=== PATIENT | male | born 1960 | race African-American/Black ===

== ENCOUNTER 2016-12-25 14:28 | Inpatient (IN) | payer OTHER ==
[2016-12-25 16:24] VITALS: BMI 29.2
--- NOTE | 2016-12-25 17:03 | HP ---
COWS - Scale Resting Pulse: 1= [place] 81-100 Sweatin= Chills/Flushing Restless Observation: 1= Difficult to Sit Still Pupil Size: 1= Pupils >than Normal Bone or Joint Aches: 1= Mild Discomfort Runny Nose/ Eye Tearin= Nasal Congestion GI Upset > 30mins: 2= Nausea/Diarrhea Tremor Observation: 2= Slight Tremor Visible Yawning Observation: 1= 1-2x During Session Anxiety or Irritability: 1=Feels Anxious/Irritable Goose Flesh Skin: 3=Piloerection COWS Score: 15 Admission ROS S - HPI Chief Complaint: heroin withdrawal sx, requesting in patient detoxification Allergies/Adverse Reactions: Allergies Allergy/AdvReac Type Severity Reaction Status Date / Time shellfish derived Allergy Severe Difficulty Verified 12/25/16 16:56 Breathing NKDA Allergy Uncoded 08/14/16 15:51 History of Present Illness: 55 yo m w long h/o substance use, previously alcohol and cocaine dependence as well, but for the past year has been using mainly heroin instead, [facility] inpatient detox at [facility], last detox last year here, PMHX asthma, HTN, taking medications, now with heorin withdrawal, uses daily, last used 3AM today. no h/o seizures, has had alcohol blackouts when he was drinking heavily in past, no h/o DTs, no psychiatric illness, no suicidal ideaton in past or at present, no suicide attempts. reports sweats, chills, body aches and trupti pain, poor appetite, insomnia, anxiety , depression, nasal congestion and nause, wt steady., no MMTP uses street methadone. Exam Limitations: No Limitations - Ebola screening Have you traveled outside of the country in the last 21 days: No Have you had contact with anyone from an Ebola affected area: No Have you been sick,other than usual withdrawal symptoms: No Do you have a fever: No - Review of Systems Constitutional: Chills, Diaphoresis, Weakness, Weight Stable EENT: reports: Nose Congestion Respiratory: reports: SOB with Exertion, Wheezing (asthma) Cardiac: reports: No Symptoms Reported GI: reports: No Symptoms Reported : reports: No Symptoms Reported Musculoskeletal: reports: Back Pain, Joint Pain, Muscle Pain, Joint Stiffness Integumentary: reports: Flushing, Sweating Neuro: reports: Headache, Tremors, Weakness Endocrine: reports: No Symptoms Reported Hematology: reports: No Symptoms Reported Psychiatric: reports: Judgement Intact, Mood/Affect Appropiate, Orientated x3, Anxious, Depressed Other Systems: Reviewed and Negative Patient History - Patient Medical History Hx Anemia: No Hx Asthma: Yes Hx Chronic Obstructive Pulmonary Disease (COPD): No Hx Cancer: No Hx Cardiac Disorders: No Hx Congestive Heart Failure: No Hx Hypertension: Yes (ON MEDS) Hx Hypercholesterolemia: No Hx Pacemaker: No HX Cerebrovascular Accident: No Hx Seizures: No Hx Dementia: No Hx Diabetes: No Hx Gastrointestinal Disorders: No Hx Liver Disease: No Hx Genitourinary Disorders: No Hx Sexually Transmitted Disorders: No Hx Renal Disease (ESRD): No Hx Thyroid Disease: No Hx Human Immunodeficiency Virus (HIV): No (NEGATIVE HX LAST 2014) Hx Hepatitis C: No Hx Depression: Yes ("sometimes" no med) Hx Suicide Attempt: No Hx Bipolar Disorder: No Hx Schizophrenia: No - Patient Surgical History Past Surgical History: Yes Hx Neurologic Surgery: No Hx Cataract Extraction: No Hx Cardiac Surgery: No Hx Lung Surgery: No Hx Breast Surgery: No Hx Breast Biopsy: No Hx Abdominal Surgery: No Hx Appendectomy: No Hx Cholecystectomy: No Hx Genitourinary Surgery: No Hx Section: No Hx Orthopedic Surgery: Yes (spinal fusion in 2005 & 2006 for herniated disc) Hx Hysterectomy: No Anesthesia Reaction: No - PPD History Previous Implant?: Yes Documented Results: Negative w/proof Implanted On Prior R Admission?: Yes Date: 06/20/16 Results: 0 MM PPD to be Administered?: No - Reproductive History Patient is a Female of Child Bearing Age (11 -55 yrs old): No Patient : No - Smoking Cessation Smoking history: Never smoked Have you smoked in the past 12 months: No Aproximately how many cigarettes per day: 0 Cigars Per Day: 0 Hx Chewing Tobacco Use: No Initiated information on smoking cessation: No 'Breaking Loose' booklet given: 12/25/16 - Substance & Tx. History Hx Alcohol Use: Yes Hx Substance Use: Yes Substance Use Type: Alcohol, Heroin Hx Substance Use Treatment: Yes ([facility]) - Substances Abused Heroin Route: Inhalation Frequency: Daily Amount used: 8-10 bags Age of first use: 54 Date of Last Use: 12/25/16 Alcohol Route: Oral Frequency: 3-6 times per week Amount used: decreased use now that he has been using heroin, some tremors when he does Cocaine Route: Inhalation Amount used: h/o smoking and sniffing cocaine in past none recently Family Disease History - Family Disease History Family Disease History: Heart Disease: Mother (HTN cirrohosis of liver) , Other: Father ( cirrohosis of liver), Mother Admission Physical Exam [facility] - Vital Signs Vital Signs: Vital Signs - 24 hr 12/25/16 16:22 Temperature 96.8 F L Pulse Rate 66 Respiratory 20 Rate Blood Pressure 165/94 - Physical General Appearance: Yes: Nourished, Appropriately Dressed, Disheveled, Mild Distress, Tremorous, Irritable, Sweating, Anxious HEENTM: Yes: EOMI, Hearing grossly Normal, Normal ENT Inspection, Normocephalic , Normal Voice, SADIE, Nasal Congestion Respiratory: Yes: Within Normal Limits, Chest Non-Tender, Lungs Clear, Normal Breath Sounds, No Respiratory Distress, No Accessory Muscle Use Neck: Yes: Within Normal Limits, No masses,lesions,Nodules, Supple, Trachea in good position Breast: Yes: Breast Exam Deferred Cardiology: Yes: Within Normal Limits, Regular Rhythm, Regular Rate, S1, S2 Abdominal: Yes: Normal Bowel Sounds, Non Tender, Flat, Soft, Protuberent Genitourinary: Yes: Within Normal Limits Back: Yes: Decreased Range of Motion, Muscle Spasm Musculoskeletal: Yes: Within Normal Limits, full range of Motion, Gait Steady Extremities: Yes: Normal Capillary Refill, Normal Inspection, Normal Range of Motion, Non-Tender, Tremors Neurological: Yes: grain farmer II-XII NML intact, Fully Oriented, Alert, Motor Strength 5/5, Normal Response, Depressed Affect Integumentary: Yes: Normal Color, Warm, Diaphoresis Lymphatic: Yes: Within Normal Limits - Addiitonal Findings: withdrawal sx noted - Diagnostic (1) Alcohol dependence with uncomplicated withdrawal Current Visit: Yes Status: Chronic (2) Opioid dependence Current Visit: No Status: Acute Qualifiers: Substance use status: uncomplicated Qualified Code(s): F11.20 - Opioid dependence, uncomplicated (3) Opioid dependence with withdrawal Current Visit: Yes Status: Acute (4) Substance-induced sleep disorder Current Visit: Yes Status: Acute (5) Asthma Current Visit: Yes Status: Chronic (6) Chronic back pain Current Visit: No Status: Chronic (7) Cocaine dependence Current Visit: Yes Status: Chronic (8) Constipation by delayed colonic transit Current Visit: Yes Status: Chronic (9) Essential hypertension Current Visit: Yes Status: Chronic (10) Low back pain Current Visit: Yes Status: Chronic (11) Drug-induced mood disorder Current Visit: Yes Status: Acute BHS Breath Alcohol Content Breath Alcohol Content: 0 Urine Drug Screen - Results Drug Screen Negative: No Urine Drug Screen Results: OPI-Opiates, MTD-Methadone
[2016-12-25] MEDS ORDERED: MAG HYDROX/AL HYDROX/SIMETH 30 ML UNIT-DOSE CUP PO PRN (17:08)
[2016-12-25] MEDS ORDERED: LOPERAMIDE HCL 2 MG CAPSULE PO PRN (17:08)
[2016-12-25] MEDS ORDERED: MAGNESIUM CITRATE 300 ML BOTTLE PO PRN (17:08)
[2016-12-25] MEDS ORDERED: hydrOXYzine PAMOATE 50 MG CAPSULE (FP) PO PRN (17:08)
[2016-12-25] MEDS ORDERED: MENTHOL/PHENOL 1 EACH UD MM PRN (17:08)
[2016-12-25] MEDS ORDERED: MAGNESIUM HYDROX 2400MG/30ML ORAL SUSPENSION 30 ML CUP PO PRN (17:08)
[2016-12-25] MEDS ORDERED: guaiFENesin/D-METHORPHAN HB 10 ML UNIT-DOSE CUPS PO PRN (17:08)
[2016-12-25] MEDS ORDERED: P-EPHED 60MG/TRIPROLIDI 2.5MG TABLET PO PRN (17:08)
[2016-12-25] MEDS ORDERED: IBUPROFEN 400 MG TABLET (FP) PO PRN (17:08)
[2016-12-25] MEDS ORDERED: ALBUTEROL SO4 6.7 GM HFA INHALER IH PRN (17:09)
[2016-12-25] MEDS ORDERED: METHADONE HCL 10 MG TABLET (FOR DETOX USE ONLY) PO ONE ×2 (18:30→23:00)
[2016-12-25] MEDS ORDERED: amLODIPine BESYLATE 10 MG TABLET (FP) PO ONE (18:30)
--- NOTE | 2016-12-25 19:55 | PN ---
[facility] Progress Note Note: received pharmacist call motrin can not coexist with naproxen discontinue motrin continue detox
[2016-12-25 20:31] LABS: URINE APPEARANCE CLEAR; URINE BILIRUBIN NEGATIVE (NEGATIVE); URINE BLOOD NEGATIVE (NEGATIVE); URINE COLOR YELLOW; URINE GLUCOSE (UA) NEGATIVE (NEGATIVE); URINE KETONE NEGATIVE (NEGATIVE); URINE LEUK ESTERASE NEGATIVE (NEGATIVE); URINE NITRITE NEGATIVE (NEGATIVE); URINE PROTEIN NEGATIVE (NEGATIVE); URINE UROBILINOGEN NEGATIVE E.U./dl (0.2-1.0)
--- NOTE | 2016-12-25 21:32 | PN ---
[facility] Progress Note Note: received nurse call regarding naproxen order reassurance motrin no longer exist
[2016-12-25] MEDS ORDERED: NAPROXEN 500 MG TABLET (FP) PO SCH (22:00)
[2016-12-25] MEDS: THIAMINE HCL 100 MG TABLET (FP) PO SCH (22:19)
[2016-12-25] MEDS: NAPROXEN 500 MG TABLET (FP) PO SCH (22:20)
[2016-12-25] MEDS: BUDESONIDE/FORMETEROL FUMARATE 80/4.5 mcg INHALER IH SCH (22:20)
[2016-12-25] MEDS: CYCLOBENZAPRINE HCL 10 MG TABLET (FP) PO SCH (22:20)
[2016-12-25] MEDS: diazePAM 5 MG TABLET PO PRN (22:20)
[2016-12-25] MEDS: cloNIDine HCL 0.1 MG TABLET PO SCH (22:20)
[2016-12-25] MEDS: diphenhydrAMINE HCL 50 MG CAPSULE PO PRN (22:22)
[2016-12-26] MEDS: diazePAM 5 MG TABLET PO PRN (05:42)
[2016-12-26] MEDS: CYCLOBENZAPRINE HCL 10 MG TABLET (FP) PO SCH ×3 (05:42→22:16)
[2016-12-26] MEDS: ACETAMINOPHEN 325 MG TABLET (FP) PO PRN (05:42)
--- NOTE | 2016-12-26 09:53 | PN ---
S COWS - Scale Resting Pulse: 0= [place] 80 or Below Sweatin= Chills/Flushing Restless Observation: 3= Extraneous Movement Pupil Size: 2= Moderately Dilated Bone or Joint Aches: 4=Acute Joint/Muscle Pain Runny Nose/ Eye Tearin= Nasal Congestion GI Upset > 30mins: 1= Stomach Cramp Tremor Observation of Outstretched Hands: 2= Slight Tremor Visible Yawning Observation: 2= >3x During Session Anxiety or Irritability: 2=Irritable/Anxious Goose Flesh Skin: 0=Smooth Skin COWS Score: 18 BHS Progress Note (SOAP) Subjective: ANXIETYSWEATS,TREMORS,FATIGUE,BODYACHES. Objective: 12/26/16 09:52 Vital Signs Temperature 95.9 F L 12/26/16 09:36 Pulse Rate 70 12/26/16 09:36 Respiratory Rate 16 12/26/16 09:36 Blood Pressure 113/74 12/26/16 09:36 O2 Sat by Pulse Oximetry (%) Laboratory Last Values Urine Color Yellow 12/25/16 19:45 Urine Appearance Clear 12/25/16 19:45 Urine pH 5.0 (5.0-8.0) 12/25/16 19:45 Ur Specific [place] 1.027 (1.001-1.035) 12/25/16 19:45 Urine Protein Negative (NEGATIVE) 12/25/16 19:45 Urine Glucose (UA) Negative (NEGATIVE) 12/25/16 19:45 Urine Ketones Negative (NEGATIVE) 12/25/16 19:45 Urine Blood Negative (NEGATIVE) 12/25/16 19:45 Urine Nitrite Negative (NEGATIVE) 12/25/16 19:45 Urine Bilirubin Negative (NEGATIVE) 12/25/16 19:45 Urine Urobilinogen Negative E.U./dl (0.2-1.0) 12/25/16 19:45 Ur Leukocyte Esterase Negative (NEGATIVE) 12/25/16 19:45 Assessment: 12/26/16 09:52 WITHDRAWAL SX Plan: CONTINUE DETOX
[2016-12-26] MEDS ORDERED: METHADONE HCL 10 MG TABLET (FOR DETOX USE ONLY) PO ONE (10:00)
[2016-12-26] MEDS: BUDESONIDE/FORMETEROL FUMARATE 80/4.5 mcg INHALER IH SCH ×2 (10:10→22:16)
[2016-12-26 10:11] LABS: MCH 29.9 pg (25.7-33.7); MCHC 33.6 g/dl (32.0-35.9); MEAN PLT VOLUME 8.7 fl (7.5-11.1); PLATELET COUNT 178 K/MM3 (134-434); RDW 13.5 % (11.9-15.9); WHITE BLOOD COUNT 7.2 K/mm3 (4.0-10.0)
[2016-12-26] MEDS: PRENATAL VITAMINS W/ FOLIC ACID TABLET (FP) PO SCH (10:11)
[2016-12-26] MEDS: cloNIDine HCL 0.1 MG TABLET PO SCH ×2 (10:11→22:16)
[2016-12-26] MEDS: amLODIPine BESYLATE 10 MG TABLET (FP) PO SCH (10:11)
[2016-12-26] MEDS: NAPROXEN 500 MG TABLET (FP) PO SCH ×2 (10:11→22:16)
[2016-12-26 10:37] LABS: ALBUMIN 4.1 g/dl (3.4-5.0); ALK PHOS 67 U/L (45-117); ANION GAP 10 (8-16); BILIRUBIN,TOTAL 0.6 mg/dL (0.2-1.0); CALCIUM 9.4 mg/dL (8.5-10.1); CO2 27 mmol/L (21-32); GLUCOSE,RANDOM 78 mg/dL (74-106); SGOT/AST 22 U/L (15-37); SGPT/ALT 41 U/L (12-78); TOT PROT 7.7 g/dl (6.4-8.2)
--- NOTE | 2016-12-26 11:44 | CONSULT ---
[facility] Psychiatric Consult - Data Date of interview: 12/26/16 Admission source: [facility] Identifying data: This is one of multiple admissions to [facility] for this 55 y/ o AA male seeking detox treatment on for heroin,cocaine and alcohol dependence.Patient is single without children,domiciled,unemployed and supported on [facility] benefits. Substance Abuse History: - Smoking Cessation. Smoking history: Never smoked. Have you smoked in the past 12 months: No. Aproximately how many cigarettes per day: 0. Cigars Per Day: 0. Hx Chewing Tobacco Use: No. Initiated information on smoking cessation: No. 'Breaking Loose' booklet given: . - Substance & Tx. History. Hx Alcohol Use: Yes. Hx Substance Use: Yes. Substance Use Type: Alcohol, Heroin. Hx Substance Use Treatment: Yes ([facility]). - Substances Abused. Heroin. Route: Inhalation. Frequency : Daily. Amount used: 8-10 bags. Age of first use: 54. Date of Last Use: . Alcohol. Route: Oral. Frequency: 3-6 times per week. Amount used: decreased use now that he has been using heroin, some tremors when he does. Cocaine. Route: Inhalation. Amount used: h/o smoking and sniffing cocaine in past none recently. This pattern of substance use is confirmed by the patient in this interview. Medical History: Remarkable for a history of bronchial asthma,HTN,lower back pain and a history of spinal fusion (2005 and 2006) for herniated disks. Psychiatric History: Patient denies. Physical/Sexual Abuse/Trauma History: Patient denies. Additional Comment: Urine Drug Screen Results: OPI-Opiates, MTD-Methadone.Noted. Mental Status Exam - Mental Status Exam Alert and Oriented to: Time, Place, Person Cognitive Function: Good Patient Appearance: Well Groomed Mood: Hopeful, Euthymic Affect: Appropriate, Normal Range Patient Behavior: Fatigued, Appropriate, Cooperative Speech Pattern: Clear, Appropriate Voice Loudness: Normal Thought Process: Goal Oriented Thought Disorder: Not Present Hallucinations: Denies Suicidal Ideation: Denies Homicidal Ideation: Denies Insight/Judgement: Fair Sleep: Well Appetite: Good Muscle strength/Tone: Normal Gait/Station: Normal Psychiatric Findings - Problem List ([place] 1, 2,3) (1) Opioid dependence with withdrawal Current Visit: Yes Status: Acute (2) Alcohol dependence with uncomplicated withdrawal Current Visit: Yes Status: Acute (3) Asthma Current Visit: Yes Status: Chronic (4) Essential hypertension Current Visit: Yes Status: Chronic (5) Low back pain Current Visit: Yes Status: Chronic (6) Chronic back pain Current Visit: Yes Status: Chronic - Initial Treatment Plan Initial Treatment Plan: Psychoeducation.Detoxification.Observation.
--- NOTE | 2016-12-26 13:20 | EKG ---
Test Reason : Blood Pressure : / mmHG Vent. Rate : 059 BPM Atrial Rate : 059 BPM P-R Int : 148 ms QRS Dur : 100 ms QT Int : 406 ms P-R-T Axes : 061 025 020 degrees QTc Int : 401 ms SINUS BRADYCARDIA INCOMPLETE RIGHT BUNDLE BRANCH BLOCK BORDERLINE ECG NO PREVIOUS ECGS AVAILABLE Confirmed by DENAE VILLARREAL MD ([id number]) on 12/26/2016 1:20:02 PM Referred By: Confirmed By:DENAE VILLARREAL MD
[2016-12-26] MEDS: THIAMINE HCL 100 MG TABLET (FP) PO SCH (22:16)
[2016-12-26] MEDS: diphenhydrAMINE HCL 50 MG CAPSULE PO PRN (22:17)
[2016-12-27] MEDS: ACETAMINOPHEN 325 MG TABLET (FP) PO PRN (05:38)
[2016-12-27] MEDS: diazePAM 5 MG TABLET PO PRN ×2 (05:39→22:05)
[2016-12-27] MEDS: CYCLOBENZAPRINE HCL 10 MG TABLET (FP) PO SCH ×3 (05:39→22:05)
--- NOTE | 2016-12-27 09:26 | PN ---
S COWS - Scale Resting Pulse: 0= MD 80 or Below Sweatin= Chills/Flushing Restless Observation: 3= Extraneous Movement Pupil Size: 2= Moderately Dilated Bone or Joint Aches: 4=Acute Joint/Muscle Pain Runny Nose/ Eye Tearin= Nasal Congestion GI Upset > 30mins: 1= Stomach Cramp Tremor Observation of Outstretched Hands: 1= Tremor [place], Not Seen Yawning Observation: 2= >3x During Session Anxiety or Irritability: 1=Feels Anxious/Irritable Goose Flesh Skin: 0=Smooth Skin COWS Score: 16 S Progress Note (SOAP) Subjective: ANXIETY,SWEATS/CHILLS. Objective: 12/27/16 09:25 Vital Signs Temperature 97.8 F 12/27/16 09:21 Pulse Rate 73 12/27/16 09:21 Respiratory Rate 18 12/27/16 09:21 Blood Pressure 122/71 12/27/16 09:21 O2 Sat by Pulse Oximetry (%) Laboratory Last Values WBC 7.2 K/mm3 (4.0-10.0) D 12/26/16 06:00 RBC 4.37 M/mm3 (4.00-5.60) 12/26/16 06:00 Hgb 13.1 GM/dL (11.7-16.9) 12/26/16 06:00 Hct 38.9 % (35.4-49) 12/26/16 06:00 MCV 89.0 fl (80-96) 12/26/16 06:00 MCHC 33.6 g/dl (32.0-35.9) 12/26/16 06:00 RDW 13.5 % (11.9-15.9) 12/26/16 06:00 Plt Count 178 K/MM3 (134-434) D 12/26/16 06:00 MPV 8.7 fl (7.5-11.1) 12/26/16 06:00 Sodium 140 mmol/L (136-145) 12/26/16 06:00 Potassium 3.8 mmol/L (3.5-5.1) 12/26/16 06:00 Chloride 103 mmol/L (98-107) 12/26/16 06:00 Carbon Dioxide 27 mmol/L (21-32) 12/26/16 06:00 Anion Gap 10 (8-16) 12/26/16 06:00 BUN 17 mg/dL (7-18) D 12/26/16 06:00 Creatinine 1.0 mg/dL (0.7-1.3) 12/26/16 06:00 Creat Clearance w eGFR > 60 (>60) 12/26/16 06:00 Random Glucose 78 mg/dL (74-106) D 12/26/16 06:00 Calcium 9.4 mg/dL (8.5-10.1) 12/26/16 06:00 Total Bilirubin 0.6 mg/dL (0.2-1.0) D 12/26/16 06:00 AST 22 U/L (15-37) D 12/26/16 06:00 ALT 41 U/L (12-78) D 12/26/16 06:00 Alkaline Phosphatase 67 U/L (45-117) 12/26/16 06:00 Total Protein 7.7 g/dl (6.4-8.2) 12/26/16 06:00 Albumin 4.1 g/dl (3.4-5.0) 12/26/16 06:00 Urine Color Yellow 12/25/16 19:45 Urine Appearance Clear 12/25/16 19:45 Urine pH 5.0 (5.0-8.0) 12/25/16 19:45 Ur Specific [place] 1.027 (1.001-1.035) 12/25/16 19:45 Urine Protein Negative (NEGATIVE) 12/25/16 19:45 Urine Glucose (UA) Negative (NEGATIVE) 12/25/16 19:45 Urine Ketones Negative (NEGATIVE) 12/25/16 19:45 Urine Blood Negative (NEGATIVE) 12/25/16 19:45 Urine Nitrite Negative (NEGATIVE) 12/25/16 19:45 Urine Bilirubin Negative (NEGATIVE) 12/25/16 19:45 Urine Urobilinogen Negative E.U./dl (0.2-1.0) 12/25/16 19:45 Ur Leukocyte Esterase Negative (NEGATIVE) 12/25/16 19:45 RPR Titer Nonreactive (NONREACTIVE) 12/26/16 06:00 Assessment: 12/27/16 09:25 WITHDRAWAL SX Plan: CONTINUE DETOX
[2016-12-27] MEDS ORDERED: METHADONE HCL 5 MG TABLET (FOR DETOX USE ONLY) PO ONE (10:00)
[2016-12-27] MEDS: BUDESONIDE/FORMETEROL FUMARATE 80/4.5 mcg INHALER IH SCH ×2 (10:01→22:05)
[2016-12-27] MEDS: cloNIDine HCL 0.1 MG TABLET PO SCH ×2 (10:01→22:05)
[2016-12-27] MEDS: NAPROXEN 500 MG TABLET (FP) PO SCH ×2 (10:02→22:05)
[2016-12-27] MEDS: PRENATAL VITAMINS W/ FOLIC ACID TABLET (FP) PO SCH (10:02)
[2016-12-27] MEDS: amLODIPine BESYLATE 10 MG TABLET (FP) PO SCH (10:02)
[2016-12-27] MEDS: THIAMINE HCL 100 MG TABLET (FP) PO SCH (22:05)
[2016-12-28] MEDS: CYCLOBENZAPRINE HCL 10 MG TABLET (FP) PO SCH ×3 (05:44→22:12)
--- NOTE | 2016-12-28 08:38 | PN ---
[facility] Progress Note (SOAP) Subjective: sweating,interrupted sleep,restless Objective: 12/28/16 08:37 Vital Signs - 8 hr 12/28/16 12/28/16 03:37 06:19 Temperature 97.3 F L Pulse Rate 65 Respiratory 18 16 Rate Blood Pressure 113/76 Laboratory Tests 12/25/16 12/26/16 12/26/16 19:45 06:00 06:00 WBC 7.2 D RBC 4.37 Hgb 13.1 Hct 38.9 MCV 89.0 MCHC 33.6 RDW 13.5 Plt Count 178 D MPV 8.7 Sodium 140 Potassium 3.8 Chloride 103 Carbon Dioxide 27 Anion Gap 10 BUN 17 D Creatinine 1.0 Creat Clearance w eGFR > 60 Random Glucose 78 D Calcium 9.4 Total Bilirubin 0.6 D AST 22 D ALT 41 D Alkaline Phosphatase 67 Total Protein 7.7 Albumin 4.1 Urine Color Yellow Urine Appearance Clear Urine pH 5.0 Ur Specific [place] 1.027 Urine Protein Negative Urine Glucose (UA) Negative Urine Ketones Negative Urine Blood Negative Urine Nitrite Negative Urine Bilirubin Negative Urine Urobilinogen Negative Ur Leukocyte Esterase Negative RPR Titer 12/26/16 06:00 WBC RBC Hgb Hct MCV MCHC RDW Plt Count MPV Sodium Potassium Chloride Carbon Dioxide Anion Gap BUN Creatinine Creat Clearance w eGFR Random Glucose Calcium Total Bilirubin AST ALT Alkaline Phosphatase Total Protein Albumin Urine Color Urine Appearance Urine pH Ur Specific [place] Urine Protein Urine Glucose (UA) Urine Ketones Urine Blood Urine Nitrite Urine Bilirubin Urine Urobilinogen Ur Leukocyte Esterase RPR Titer Nonreactive labs noted Assessment: 12/28/16 08:37 withdrawal sx. Plan: continue detox
[2016-12-28] MEDS ORDERED: METHADONE HCL 5 MG TABLET (FOR DETOX USE ONLY) PO ONE (10:00)
[2016-12-28] MEDS ORDERED: METHADONE HCL 10 MG TABLET (FOR DETOX USE ONLY) PO ONE (10:00)
[2016-12-28] MEDS: NAPROXEN 500 MG TABLET (FP) PO SCH ×2 (10:06→22:12)
[2016-12-28] MEDS: cloNIDine HCL 0.1 MG TABLET PO SCH ×2 (10:06→22:12)
[2016-12-28] MEDS: amLODIPine BESYLATE 10 MG TABLET (FP) PO SCH (10:07)
[2016-12-28] MEDS: PRENATAL VITAMINS W/ FOLIC ACID TABLET (FP) PO SCH (10:07)
[2016-12-28] MEDS: BUDESONIDE/FORMETEROL FUMARATE 80/4.5 mcg INHALER IH SCH ×2 (10:08→22:11)
[2016-12-28] MEDS: ACETAMINOPHEN 325 MG TABLET (FP) PO PRN (13:37)
[2016-12-28] MEDS: diphenhydrAMINE HCL 50 MG CAPSULE PO PRN (22:12)
[2016-12-29] MEDS: THIAMINE HCL 100 MG TABLET (FP) PO SCH
[2016-12-29] MEDS: CYCLOBENZAPRINE HCL 10 MG TABLET (FP) PO SCH (05:43)
[2016-12-29] MEDS: ACETAMINOPHEN 325 MG TABLET (FP) PO PRN (05:43)
[2016-12-29] MEDS ORDERED: METHADONE HCL 5 MG TABLET (FOR DETOX USE ONLY) PO ONE (06:00)
[2016-12-29 06:41] VITALS: BP 109/69; PULSE 63; TEMP 97.1
--- NOTE | 2016-12-29 07:31 | PN ---
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 ON THE FLOOR. HE STATED HE HAD TO LEAVE AMA BECAUSE HE HAD "THINGS TO DO". PT. ENCOURAGED TO COMPLETE TREATMENT. HE WAS EDUCATED ON THE BENEFITS OF COMPLETING HIS PROTOCOL AND ALTERNATIVE PLANS; PT. VERBALIZED UNDERSTANDING BUT STATED HE WANTED TO LEAVE.
--- NOTE | 2016-12-29 09:31 | PN ---
[facility] Progress Note (SOAP) Subjective: no complaints Objective: 12/29/16 09:30 Vital Signs - 8 hr 12/29/16 12/29/16 03:30 06:40 Temperature 97.1 F L Pulse Rate 63 Respiratory 18 18 Rate Blood Pressure 109/69 Laboratory Tests 12/25/16 12/26/16 12/26/16 19:45 06:00 06:00 WBC 7.2 D RBC 4.37 Hgb 13.1 Hct 38.9 MCV 89.0 MCHC 33.6 RDW 13.5 Plt Count 178 D MPV 8.7 Sodium 140 Potassium 3.8 Chloride 103 Carbon Dioxide 27 Anion Gap 10 BUN 17 D Creatinine 1.0 Creat Clearance w eGFR > 60 Random Glucose 78 D Calcium 9.4 Total Bilirubin 0.6 D AST 22 D ALT 41 D Alkaline Phosphatase 67 Total Protein 7.7 Albumin 4.1 Urine Color Yellow Urine Appearance Clear Urine pH 5.0 Ur Specific [place] 1.027 Urine Protein Negative Urine Glucose (UA) Negative Urine Ketones Negative Urine Blood Negative Urine Nitrite Negative Urine Bilirubin Negative Urine Urobilinogen Negative Ur Leukocyte Esterase Negative RPR Titer 12/26/16 06:00 WBC RBC Hgb Hct MCV MCHC RDW Plt Count MPV Sodium Potassium Chloride Carbon Dioxide Anion Gap BUN Creatinine Creat Clearance w eGFR Random Glucose Calcium Total Bilirubin AST ALT Alkaline Phosphatase Total Protein Albumin Urine Color Urine Appearance Urine pH Ur Specific [place] Urine Protein Urine Glucose (UA) Urine Ketones Urine Blood Urine Nitrite Urine Bilirubin Urine Urobilinogen Ur Leukocyte Esterase RPR Titer Nonreactive 12/29/16 09:31 Assessment: completed etox, medically stable Plan: d/c today, f/u PCP for medical care after discharge
--- NOTE | 2016-12-29 09:34 | DS ---
[facility] Detox Discharge Summary Admission Date: 12/25/16 Discharge Date: 12/29/16 - History Present History: Alcohol Dependence, Opioid Dependence - Physical Exam Results Vital Signs: Vital Signs Temperature 97.1 F L 12/29/16 06:40 Pulse Rate 63 12/29/16 06:40 Respiratory Rate 18 12/29/16 06:40 Blood Pressure 109/69 12/29/16 06:40 O2 Sat by Pulse Oximetry (%) - Treatment Hospital Course: Detox Protocol Followed, Detoxed Safely, Responded well, Discharged Condition Good, Rehab Referral Accepted - Medication Discharge Medications: Ambulatory Orders Albuterol Sulfate Inhaler - [Ventolin HFA Inhaler -] 2 inh IH Q4H PRN #1 inhaler 12/10/15 Amlodipine Besylate [Norvasc -] 10 mg PO DAILY #30 tablet 12/10/15 Budesonide/Formeterol Fumarate [SYMBICORT 80/4.5mcg -] 1 inh PO BID 05/17/16 - Diagnosis (1) Alcohol dependence with uncomplicated withdrawal Status: Acute (2) Opioid dependence Status: Acute Qualifiers: Substance use status: uncomplicated Qualified Code(s): F11.20 - Opioid dependence, uncomplicated (3) Opioid dependence with withdrawal Status: Acute (4) Substance-induced sleep disorder Status: Acute (5) Asthma Status: Chronic (6) Chronic back pain Status: Chronic (7) Cocaine dependence Status: Chronic (8) Constipation by delayed colonic transit Status: Chronic (9) Essential hypertension Status: Chronic (10) Low back pain Status: Chronic (11) Drug-induced mood disorder Status: Acute
[2016-12-29] MEDS ORDERED: METHADONE HCL 10 MG TABLET (FOR DETOX USE ONLY) PO ONE (10:00)
[2016-12-30] MEDS ORDERED: METHADONE HCL 5 MG TABLET (FOR DETOX USE ONLY) PO ONE (06:00)
== END 2016-12-29 08:55 | disposition home or self-care (01) | DRG 897 ==
LOC: YASAS 14:28 → Y3N 17:25
PROVIDERS: ADMIT Internal Medicine; ATTEND Internal Medicine
PROC: HZ2ZZZZ Detoxification Services for Substance Abuse Treatment (ICD-10-PCS; principal; 2016-12-29)
DX: F11.23 Opioid dependence with withdrawal (principal); F14.20 Cocaine dependence, uncomplicated; F19.282 Other psychoactive substance dependence with psychoactive substance-induced sleep disorder; F10.230 Alcohol dependence with withdrawal, uncomplicated; F19.24 Other psychoactive substance dependence with psychoactive substance-induced mood disorder; I10 Essential (primary) hypertension; J45.909 Unspecified asthma, uncomplicated; M54.5 Low back pain; K59.01 Slow transit constipation; K31.89 Other diseases of stomach and duodenum
CPT/HCPCS: 36415; 80053; 81003; 85027; 86593; 93005; 93010

== ENCOUNTER 2017-09-04 13:22 | Inpatient (IN) | payer OTHER ==
--- NOTE | 2017-09-04 20:29 | HP ---
Admission ROS S - HPI Chief Complaint: SEEKING INPATIENT REHAB S/P DETOX TO MAINTAIN RECOVERY Allergies/Adverse Reactions: Allergies Allergy/AdvReac Type Severity Reaction Status Date / Time shellfish derived Allergy Severe Difficulty Verified 12/25/16 16:56 Breathing NKDA Allergy Uncoded 08/14/16 15:51 History of Present Illness: 56 Y.O. MALE WITH ALCOHOLISMA ND OPIOID DEPENDENCE ADMITTED TO REHAB. CLIENT IS KNOW TO [facility]. HE WAS REFERRED BY [facility] AFTER COMPLETING DETOX THERE ABOUT4 DAYS AGO. STATES HE USED A "PIECE OF [place]CE [place] REPORTS LONGEST CLEAN TIME WAS 2 YEARS RELAPSING IN 2007. DETOX 5X REHAB 5 X Exam Limitations: No Limitations - Ebola screening Have you traveled outside of the country in the last 21 days: No Have you had contact with anyone from an Ebola affected area: No Have you been sick,other than usual withdrawal symptoms: No Do you have a fever: No - Review of Systems Constitutional: No Symptoms Reported EENT: reports: No Symptoms Reported Respiratory: reports: No Symptoms reported Cardiac: reports: No Symptoms Reported GI: reports: Constipated : reports: No Symptoms Reported Musculoskeletal: reports: Back Pain Integumentary: reports: No Symptoms Reported Neuro: reports: No Symptoms reported Endocrine: reports: No Symptoms Reported Hematology: reports: No Symptoms Reported Psychiatric: reports: No Sypmtoms Reported Other Systems: Reviewed and Negative Patient History - Patient Medical History Hx Anemia: No Hx Asthma: Yes Hx Chronic Obstructive Pulmonary Disease (COPD): No Hx Cancer: No Hx Cardiac Disorders: No Hx Congestive Heart Failure: No Hx Hypertension: Yes (ON MEDS) Hx Hypercholesterolemia: No Hx Pacemaker: No HX Cerebrovascular Accident: No Hx Seizures: No Hx Dementia: No Hx Diabetes: No Hx Gastrointestinal Disorders: No Hx Liver Disease: No Hx Genitourinary Disorders: No Hx Sexually Transmitted Disorders: No Hx Renal Disease (ESRD): No Hx Thyroid Disease: No Hx Human Immunodeficiency Virus (HIV): No Hx Hepatitis C: No Hx Depression: No Hx Suicide Attempt: No Hx Bipolar Disorder: No Hx Schizophrenia: No Other Medical History: CHRONIC BACK PAIN - Patient Surgical History Past Surgical History: Yes Hx Neurologic Surgery: No Hx Cataract Extraction: No Hx Cardiac Surgery: No Hx Lung Surgery: No Hx Breast Surgery: No Hx Breast Biopsy: No Hx Abdominal Surgery: No Hx Appendectomy: No Hx Cholecystectomy: No Hx Genitourinary Surgery: No Hx Section: No Hx Orthopedic Surgery: Yes (spinal fusion in 2006 & 2007 for herniated disc) Hx Hysterectomy: No Anesthesia Reaction: No - PPD History Previous Implant?: Yes Documented Results: Negative w/proof Implanted On Prior [facility] Admission?: Yes Date: 06/20/16 Results: 0 MM PPD to be Administered?: Yes - Smoking Cessation Smoking history: Never smoked Have you smoked in the past 12 months: No Aproximately how many cigarettes per day: 0 Cigars Per Day: 0 Hx Chewing Tobacco Use: No Initiated information on smoking cessation: No - Substance & Tx. History Hx Alcohol Use: Yes Hx Substance Use: Yes Substance Use Type: Heroin Hx Substance Use Treatment: Yes - Substances Abused HEROIN Route: Inhalation Frequency: Daily Amount used: 1BUNDLE Age of first use: 53 Date of Last Use: 08/27/17 VODKA Route: Oral Frequency: Daily Amount used: 1/2 PINT Age of first use: 25 Date of Last Use: 08/27/17 Family Disease History - Family Disease History Family Disease History: Heart Disease: Mother (HTN cirrohosis of liver) , Other: Father ( cirrohosis of liver), Mother Admission Physical Exam S - Vital Signs Vital Signs: Vital Signs - 24 hr 09/04/17 16:55 Temperature 97.8 F Pulse Rate 65 Respiratory 20 Rate Blood Pressure 146/65 - Physical General Appearance: Yes: No Apparent Distress, Appropriately Dressed HEENTM: Yes: EOMI, Normal ENT Inspection, Normocephalic, Normal Voice, SAIDE, Pharynx Normal Respiratory: Yes: Chest Non-Tender, Lungs Clear, Normal Breath Sounds, No Respiratory Distress, No Accessory Muscle Use Neck: Yes: No masses,lesions,Nodules, Supple, Trachea in good position Breast: Yes: Breast Exam Deferred Cardiology: Yes: Regular Rhythm, Regular Rate, S1, S2 Abdominal: Yes: Normal Bowel Sounds, Non Tender, Soft Genitourinary: Yes: Within Normal Limits Back: Yes: Surgical Scar Musculoskeletal: Yes: full range of Motion, Gait Steady Extremities: Yes: Normal Capillary Refill, Normal Inspection, Normal Range of Motion, Non-Tender Neurological: Yes: biscuit maker II-XII NML intact, Fully Oriented, Alert, Motor Strength 5/5, Normal Mood/Affect Integumentary: Yes: Normal Color, Dry, Warm Lymphatic: Yes: Within Normal Limits - Diagnostic (1) Asthma Current Visit: Yes Status: Chronic (2) Chronic back pain Current Visit: Yes Status: Chronic (3) Essential hypertension Current Visit: Yes Status: Chronic (4) Uncomplicated alcohol dependence Current Visit: Yes Status: Chronic (5) Uncomplicated opioid dependence Current Visit: Yes Status: Chronic Cleared for Admission [facility] - Detox or Rehab Detox Regimen/Protocol: Not Applicable Claeared for Rehab Admission: Yes S Breath Alcohol Content Breath Alcohol Content: 0 Urine Drug Screen - Results Drug Screen Negative: No Urine Drug Screen Results: OPI-Opiates, BZO-Benzodiazepines, MTD-Methadone, OXY- Oxycodone Inpatient Rehab Admission - Initial Determination Are CD services needed?: Yes Free of communicable disease: Yes Not in need of hospitalization: Yes - Rehab Admission Criteria Previous failed treatment: Yes Poor recovery environment: Yes Comorbidities: Yes Lacks judgement: Yes Patient is meeting Inpatient Rehab admission criteria:: Yes
[2017-09-04] MEDS ORDERED: hydrOXYzine PAMOATE 50 MG CAPSULE (FP) PO PRN (20:40)
[2017-09-04] MEDS ORDERED: MAG HYDROX/AL HYDROX/SIMETH 30 ML UNIT-DOSE CUP PO PRN (20:40)
[2017-09-04] MEDS ORDERED: MENTHOL/PHENOL 1 EACH UD MM PRN (20:40)
[2017-09-04] MEDS ORDERED: diphenhydrAMINE HCL 50 MG CAPSULE PO PRN (20:40)
[2017-09-04] MEDS ORDERED: LOPERAMIDE HCL 2 MG CAPSULE PO PRN (20:40)
[2017-09-04] MEDS ORDERED: P-EPHED 60MG/TRIPROLIDI 2.5MG TABLET PO PRN (20:40)
[2017-09-04] MEDS ORDERED: MAGNESIUM HYDROX 2400MG/30ML ORAL SUSPENSION 30 ML CUP PO PRN (20:40)
[2017-09-04] MEDS ORDERED: guaiFENesin/D-METHORPHAN HB 10 ML UNIT-DOSE CUPS PO PRN (20:40)
[2017-09-04] MEDS ORDERED: ACETAMINOPHEN 325 MG TABLET (FP) PO PRN (20:40)
[2017-09-04] MEDS ORDERED: MAGNESIUM CITRATE 300 ML BOTTLE PO PRN (20:40)
[2017-09-04] MEDS ORDERED: ALBUTEROL SO4 18 GM HFA INHALER IH PRN (20:41)
[2017-09-04] MEDS ORDERED: TUBERCULIN PPD 5 TU/0.1ML VIAL ID ONE (22:30)
[2017-09-04] MEDS: THIAMINE HCL 100 MG TABLET (FP) PO SCH (22:38)
[2017-09-04 23:48] LABS: URINE APPEARANCE SLCLOUDY; URINE BILIRUBIN NEGATIVE (NEGATIVE); URINE BLOOD NEGATIVE (NEGATIVE); URINE COLOR DKYELLOW; URINE GLUCOSE (UA) NEGATIVE (NEGATIVE); URINE KETONE NEGATIVE (NEGATIVE); URINE NITRITE NEGATIVE (NEGATIVE); URINE PROTEIN NEGATIVE (NEGATIVE)
[2017-09-05] MEDS: IBUPROFEN 400 MG TABLET (FP) PO PRN ×3 (02:18→21:13)
--- NOTE | 2017-09-05 09:21 | HP ---
Psychiatrist Admission - Data Date of interview: 09/05/17 Admission source: [facility] Identifying data: This is the second [facility] admission for this 56 years old single Black male, unemployed on SSD, domiciled Medical History: Significant for a history of bronchial asthma, HTN, lower back pain and a history of spinal fusion (2005 and 2006) for herniated disks. Psychiatric History: Denies history of previous psychiatric treatment Physical/Sexual Abuse/Trauma History: Denies history of sexual, physical and verbal abuse as well as DV relationship Additional Comment: Denies criminal history Vital Signs: Vital Signs - 24 hr 09/04/17 09/04/17 09/05/17 16:55 22:30 00:30 Temperature 97.8 F 98.1 F Pulse Rate 65 56 L Respiratory 20 18 Rate Blood Pressure 146/65 127/94 09/05/17 09/05/17 03:30 07:09 Temperature 97.5 F L Pulse Rate 67 Respiratory 18 18 Rate Blood Pressure 137/85 Allergies/Adverse Reactions: Allergies Allergy/AdvReac Type Severity Reaction Status Date / Time shellfish derived Allergy Severe Difficulty Verified 09/04/17 20:34 Breathing NKDA Allergy Uncoded 09/04/17 20:34 Date of last physical exam: 09/04/17 Concur with the findings of this exam: Yes - Substance Abuse/Tx History Hx Alcohol Use: Yes Hx Substance Use: Yes Substance Use Type: Alcohol (Started drinking alcohol at age 25, consumes half a pont of vodka daily. Last drink on 08/27/17), Heroin (Started using heroin at age 53, consumes 10 bags daily. Last used on 08/27/17) Hx Substance Use Treatment: Yes (10 previous inpt detox & one inpt rehab @ [facility]) Mental Status Exam - Mental Status Exam Alert and Oriented to: Time, Place, Person Cognitive Function: Fair Patient Appearance: Well Groomed Mood: Hopeful, Euthymic Patient Behavior: Cooperative Speech Pattern: Clear Voice Loudness: Normal Thought Process: Intact, Goal Oriented Thought Disorder: Not Present Hallucinations: Denies Suicidal Ideation: Denies Homicidal Ideation: Denies Insight/Judgement: Fair Sleep: Poorly Appetite: Fair Muscle strength/Tone: Normal Gait/Station: Normal Psychiatric Findings - Problem List ([place] 1, 2,3) (1) Alcohol dependence Current Visit: Yes Status: Acute (2) Opioid dependence Current Visit: No Status: Acute Qualifiers: Substance use status: uncomplicated Qualified Code(s): F11.20 - Opioid dependence, uncomplicated; F11.20 - Opioid dependence, uncomplicated; F11.20 - Opioid dependence, uncomplicated (3) Substance-induced sleep disorder Current Visit: No Status: Acute (4) Asthma Current Visit: Yes Status: Chronic (5) Chronic back pain Current Visit: Yes Status: Chronic (6) Essential hypertension Current Visit: Yes Status: Chronic (7) Low back pain Current Visit: No Status: Chronic - Initial Treatment Plan Initial Treatment Plan: 1) Start Belsomra 10 mg po HS prn for insomnia. Benefits vs Risks of medication discussed with patient and he agreed to try it. 2) Monitor progress
[2017-09-05 09:22] LABS: URINE LEUK ESTERASE Negative (NEGATIVE)
[2017-09-05] MEDS: amLODIPine BESYLATE 10 MG TABLET (FP) PO SCH (10:13)
[2017-09-05] MEDS: PRENATAL VITAMINS W/ FOLIC ACID TABLET (FP) PO SCH (10:13)
--- NOTE | 2017-09-05 12:05 | EKG ---
Test Reason : Blood Pressure : / mmHG Vent. Rate : 057 BPM Atrial Rate : 057 BPM P-R Int : 144 ms QRS Dur : 102 ms QT Int : 414 ms P-R-T Axes : 047 017 025 degrees QTc Int : 402 ms SINUS BRADYCARDIA OTHERWISE NORMAL ECG WHEN COMPARED WITH ECG OF 25-DEC-2016 18:37, NO SIGNIFICANT CHANGE WAS FOUND Confirmed by MURPHY MILNER MD ([id number]) on 09/05/2017 12:05:20 PM Referred By: GUILLERMO Confirmed By:MURPHY MILNER MD
[2017-09-05 14:02] LABS: MCH 28.9 pg (25.7-33.7); MCHC 32.6 g/dl (32.0-35.9); MEAN CELL VOLUME 88.7 fl (80-96); MEAN PLT VOLUME 8.6 fl (7.5-11.1); PLATELET COUNT 179 K/MM3 (134-434); RDW 13.2 % (11.9-15.9); WHITE BLOOD COUNT 5.2 K/mm3 (4.0-10.0)
[2017-09-05 14:11] LABS: ALBUMIN 3.7 g/dl (3.4-5.0); ANION GAP 9 (8-16); CALCIUM 9.3 mg/dL (8.5-10.1); CO2 26 mmol/L (21-32); CREATININE 1.1 mg/dL (0.7-1.3); GLUCOSE,RANDOM 132 mg/dL (74-106); SGOT/AST 29 U/L (15-37); SGPT/ALT 52 U/L (12-78)
[2017-09-05 14:13] LABS: ALK PHOS 71 U/L (45-117); BILIRUBIN,TOTAL 0.8 mg/dL (0.2-1.0); TOT PROT 7.1 g/dl (6.4-8.2)
[2017-09-05] MEDS: THIAMINE HCL 100 MG TABLET (FP) PO SCH (21:10)
[2017-09-05] MEDS ORDERED: SUVOREXANT 10 MG TABLET PO PRN (22:00)
[2017-09-06 06:59] VITALS: TEMP 97.6
[2017-09-06] MEDS: PRENATAL VITAMINS W/ FOLIC ACID TABLET (FP) PO SCH (10:01)
[2017-09-06] MEDS: IBUPROFEN 400 MG TABLET (FP) PO PRN (10:02)
[2017-09-06] MEDS: amLODIPine BESYLATE 10 MG TABLET (FP) PO SCH (10:02)
[2017-09-06 11:12] VITALS: BP 146/88; PULSE 71
--- NOTE | 2017-09-06 18:12 | PN ---
[facility] Progress Note Note: Received report from Malorie Davis RN that patient is signing out AMA. RN notes that she will make Unit Psychiatrist aware. Dary Collins NP
== END 2017-09-06 18:18 | disposition left against medical advice (07) | DRG 894 ==
LOC: YASAS 13:22 → Y3W 19:42
PROVIDERS: ADMIT Psychiatry & Neurology Psychiatry; ATTEND Psychiatry & Neurology Psychiatry
PROC: HZ42ZZZ Group Counseling for Substance Abuse Treatment, Cognitive-Behavioral (ICD-10-PCS; principal; 2017-09-04)
DX: F11.20 Opioid dependence, uncomplicated (principal); F19.282 Other psychoactive substance dependence with psychoactive substance-induced sleep disorder; F10.20 Alcohol dependence, uncomplicated; I10 Essential (primary) hypertension; J45.909 Unspecified asthma, uncomplicated; M54.5 Low back pain; G89.29 Other chronic pain; Z98.1 Arthrodesis status
CPT/HCPCS: 36415; 80053; 81003; 85027; 86593; 86803; 93005; 93010

== ENCOUNTER 2017-11-14 14:01 | Inpatient (IN) | payer OTHER ==
--- NOTE | 2017-11-14 16:51 | HP ---
COWS - Scale Resting Pulse: 0= [place] 80 or Below Sweatin= Chills/Flushing Restless Observation: 3= Extraneous Movement Pupil Size: 0= Normal to Room Light Bone or Joint Aches: 2= Severe Diffuse Aches Runny Nose/ Eye Tearin= Runny Nose/Eyes GI Upset > 30mins: 2= Nausea/Diarrhea Tremor Observation: 2= Slight Tremor Visible Yawning Observation: 0= None Anxiety or Irritability: 2=Irritable/Anxious Goose Flesh Skin: 0=Smooth Skin COWS Score: 14 [facility] Chief Complaint: withdrawal sx Allergies/Adverse Reactions: Allergies Allergy/AdvReac Type Severity Reaction Status Date / Time shellfish derived Allergy Severe Difficulty Verified 09/04/17 20:34 Breathing NKDA Allergy Uncoded 09/04/17 20:34 History of Present Illness: 56 years old male with long history of opioid dependence has hypertension asthma and depression is admitted to detox Exam Limitations: No Limitations - Ebola screening Have you traveled outside of the country in the last 21 days: No Have you had contact with anyone from an Ebola affected area: No Have you been sick,other than usual withdrawal symptoms: No Do you have a fever: No - Review of Systems Constitutional: Changes in sleep, Weight Stable EENT: reports: No Symptoms Reported Respiratory: reports: No Symptoms reported Cardiac: reports: No Symptoms Reported GI: reports: Nausea, Poor Fluid Intake, Indigestion, Abdominal cramping : reports: No Symptoms Reported Musculoskeletal: reports: Back Pain Integumentary: reports: No Symptoms Reported Neuro: reports: Tremors Endocrine: reports: No Symptoms Reported Hematology: reports: No Symptoms Reported Psychiatric: reports: Judgement Intact, Orientated x3, Anxious, Depressed Other Systems: Reviewed and Negative Patient History - Patient Medical History Hx Anemia: No Hx Asthma: Yes Hx Chronic Obstructive Pulmonary Disease (COPD): No Hx Cancer: No Hx Cardiac Disorders: No Hx Congestive Heart Failure: No Hx Hypertension: Yes Hx Hypercholesterolemia: No Hx Pacemaker: No HX Cerebrovascular Accident: No Hx Seizures: No Hx Dementia: No Hx Diabetes: No Hx Gastrointestinal Disorders: No Hx Liver Disease: No Hx Genitourinary Disorders: No Hx Sexually Transmitted Disorders: No Hx Renal Disease (ESRD): No Hx Thyroid Disease: No Hx Human Immunodeficiency Virus (HIV): No Hx Hepatitis C: No Hx Depression: Yes Hx Suicide Attempt: No Hx Bipolar Disorder: No Hx Schizophrenia: No - Patient Surgical History Past Surgical History: Yes Hx Neurologic Surgery: No Hx Cataract Extraction: No Hx Cardiac Surgery: No Hx Lung Surgery: No Hx Breast Surgery: No Hx Breast Biopsy: No Hx Abdominal Surgery: No Hx Appendectomy: No Hx Cholecystectomy: No Hx Genitourinary Surgery: No Hx Orthopedic Surgery: Yes (spinal fusion in 2006 & 2006 for herniated disc) Anesthesia Reaction: No - PPD History Previous Implant?: Yes Documented Results: Negative w/proof Date: 09/06/17 Results: 0 MM PPD to be Administered?: No - Smoking Cessation Smoking history: Never smoked Have you smoked in the past 12 months: No Aproximately how many cigarettes per day: 0 Cigars Per Day: 0 Hx Chewing Tobacco Use: No Initiated information on smoking cessation: No - Substance & Tx. History Hx Alcohol Use: No Hx Substance Use: Yes Substance Use Type: Heroin, Opiates Hx Substance Use Treatment: Yes (08/2017 [facility] - Substances Abused Heroin Route: Inhalation Frequency: Daily Amount used: 10 bags Age of first use: 53 Date of Last Use: 11/14/17 Family Disease History - Family Disease History Family Disease History: Heart Disease: Mother (HTN cirrohosis of liver) , Other: Father ( cirrohosis of liver), Mother Admission Physical Exam S - Vital Signs Vital Signs: Vital Signs - 24 hr 11/14/17 15:12 Temperature 97.5 F L Pulse Rate 75 Respiratory 20 Rate Blood Pressure 140/81 - Physical General Appearance: Yes: Nourished, Appropriately Dressed, Mild Distress, Tremorous, Irritable, Sweating, Anxious HEENTM: Yes: Hearing grossly Normal, Normal ENT Inspection, Normocephalic, Normal Voice Respiratory: Yes: Chest Non-Tender, No Respiratory Distress, No Accessory Muscle Use, Wheezing Neck: Yes: Supple, Trachea in good position Breast: Yes: Breasts Symetrical Cardiology: Yes: Regular Rhythm, Regular Rate, S1, S2 Abdominal: Yes: Non Tender, Flat, Increased Bowel Sounds Genitourinary: Yes: Within Normal Limits Back: Yes: Normal Inspection Musculoskeletal: Yes: full range of Motion, Gait Steady, Back pain, Muscle Pain (legs) Extremities: Yes: Normal Inspection, Normal Range of Motion, Non-Tender, Tremors Neurological: Yes: Fully Oriented, Alert, Motor Strength 5/5, Normal Response, Depressed Affect Integumentary: Yes: Warm Lymphatic: Yes: Within Normal Limits - Diagnostic (1) GERD (gastroesophageal reflux disease) Current Visit: Yes Status: Chronic Qualifiers: Esophagitis presence: without esophagitis Qualified Code(s): K21.9 - Gastro -esophageal reflux disease without esophagitis (2) Depression (emotion) Current Visit: Yes Status: Suspected Qualifiers: Depression Type: dysthymia Qualified Code(s): F34.1 - Dysthymic disorder (3) Opioid dependence with withdrawal Current Visit: Yes Status: Acute (4) Asthma Current Visit: Yes Status: Chronic (5) Chronic back pain Current Visit: Yes Status: Chronic (6) Essential hypertension Current Visit: Yes Status: Chronic Cleared for Admission [facility] - Detox or Rehab [facility] Level of Care: Medically Managed Detox Regimen/Protocol: Methadone [facility] Breath Alcohol Content Breath Alcohol Content: 0 Urine Drug Screen - Results Drug Screen Negative: No Urine Drug Screen Results: OPI-Opiates, BZO-Benzodiazepines, MTD-Methadone, TCA- Tricyclic Antidepress, OXY-Oxycodone
[2017-11-14] MEDS ORDERED: LOPERAMIDE HCL 2 MG CAPSULE PO PRN (16:54)
[2017-11-14] MEDS ORDERED: MAGNESIUM HYDROX 2400MG/30ML ORAL SUSPENSION 30 ML CUP PO PRN (16:54)
[2017-11-14] MEDS ORDERED: MAGNESIUM CITRATE 300 ML BOTTLE PO PRN (16:54)
[2017-11-14] MEDS ORDERED: P-EPHED 60MG/TRIPROLIDI 2.5MG TABLET PO PRN (16:54)
[2017-11-14] MEDS ORDERED: MENTHOL/PHENOL 1 EACH UD MM PRN (16:54)
[2017-11-14] MEDS ORDERED: guaiFENesin/D-METHORPHAN HB 10 ML UNIT-DOSE CUPS PO PRN (16:54)
[2017-11-14] MEDS ORDERED: MAG HYDROX/AL HYDROX/SIMETH 30 ML UNIT-DOSE CUP PO PRN (16:54)
[2017-11-14] MEDS ORDERED: ALBUTEROL SO4 18 GM HFA INHALER IH PRN (16:57)
[2017-11-14] MEDS ORDERED: NAPROXEN 500 MG TABLET (FP) PO PRN (16:58)
[2017-11-14] MEDS ORDERED: METHOCARBAMOL 500 MG TABLET PO PRN (16:59)
[2017-11-14] MEDS ORDERED: METHADONE HCL 10 MG TABLET (FOR DETOX USE ONLY) PO ONE ×2 (19:00→23:00)
[2017-11-14] MEDS: amLODIPine BESYLATE 10 MG TABLET (FP) PO SCH (20:11)
[2017-11-14] MEDS: diazePAM 5 MG TABLET PO PRN (20:11)
[2017-11-14] MEDS: THIAMINE HCL 100 MG TABLET (FP) PO SCH (22:09)
[2017-11-14] MEDS: RANITIDINE HCL 150 MG TABLET (FP) PO SCH (22:09)
[2017-11-14 23:38] LABS: URINE APPEARANCE SLCLOUDY; URINE BILIRUBIN NEGATIVE (NEGATIVE); URINE BLOOD NEGATIVE (NEGATIVE); URINE COLOR YELLOW; URINE GLUCOSE (UA) NEGATIVE (NEGATIVE); URINE KETONE TRACE (NEGATIVE); URINE LEUK ESTERASE NEGATIVE (NEGATIVE); URINE NITRITE NEGATIVE (NEGATIVE); URINE PROTEIN NEGATIVE (NEGATIVE); URINE UROBILINOGEN NEGATIVE mg/dL (0.2-1.0)
[2017-11-15] MEDS: ACETAMINOPHEN 325 MG TABLET (FP) PO PRN (01:27)
[2017-11-15] MEDS ORDERED: METHADONE HCL 10 MG TABLET (FOR DETOX USE ONLY) PO ONE (10:00)
[2017-11-15] MEDS: diazePAM 5 MG TABLET PO PRN ×3 (10:07→22:07)
[2017-11-15] MEDS: amLODIPine BESYLATE 10 MG TABLET (FP) PO SCH (10:07)
[2017-11-15] MEDS: PRENATAL VITAMINS W/ FOLIC ACID TABLET (FP) PO SCH (10:07)
[2017-11-15] MEDS: RANITIDINE HCL 150 MG TABLET (FP) PO SCH ×2 (10:07→22:07)
[2017-11-15 10:08] LABS: ALBUMIN 3.7 g/dl (3.4-5.0); ANION GAP 9 (8-16); CALCIUM 9.5 mg/dL (8.5-10.1); CO2 25 mmol/L (21-32); GLUCOSE,RANDOM 135 mg/dL (74-106)
[2017-11-15 10:12] LABS: ALK PHOS 75 U/L (45-117); BILIRUBIN,TOTAL 0.8 mg/dL (0.2-1.0); SGOT/AST 24 U/L (15-37); SGPT/ALT 48 U/L (12-78); TOT PROT 7.1 g/dl (6.4-8.2)
[2017-11-15 10:13] LABS: MCHC 32.8 g/dl (32.0-35.9); MEAN CELL VOLUME 88.5 fl (80-96); MEAN PLT VOLUME 8.3 fl (7.5-11.1); PLATELET COUNT 186 K/MM3 (134-434); RDW 13.5 % (11.9-15.9)
[2017-11-15] MEDS ORDERED: hydrOXYzine PAMOATE 50 MG CAPSULE (FP) PO PRN (10:23)
--- NOTE | 2017-11-15 11:19 | PN ---
[facility] COWS - Scale Resting Pulse: 0= [place] 80 or Below Sweatin=Flushed/Facial Moisture Restless Observation: 1= Difficult to Sit Still Pupil Size: 0= Normal to Room Light Bone or Joint Aches: 0= None Runny Nose/ Eye Tearin= Runny Nose/Eyes GI Upset > 30mins: 0= None Tremor Observation of Outstretched Hands: 2= Slight Tremor Visible Yawning Observation: 1= 1-2x During Session Anxiety or Irritability: 2=Irritable/Anxious Goose Flesh Skin: 3=Piloerection COWS Score: 13 [facility] Progress Note (SOAP) Subjective: Anxious, Constipation, Sweating, tremors, H/A, Interrupted Sleep. Objective: PT. A & O X 3. NO ACUTE DISTRESS. 11/15/17 11:21 Vital Signs Temperature 97.0 F L 11/15/17 10:59 Pulse Rate 62 11/15/17 10:59 Respiratory Rate 18 11/15/17 10:59 Blood Pressure 126/79 11/15/17 10:59 O2 Sat by Pulse Oximetry (%) Laboratory Tests 11/14/17 11/15/17 11/15/17 20:10 07:00 07:00 WBC 6.0 RBC 4.55 Hgb 13.2 Hct 40.3 MCV 88.5 MCH 29.0 MCHC 32.8 RDW 13.5 Plt Count 186 MPV 8.3 Sodium 138 Potassium 3.5 D Chloride 104 Carbon Dioxide 25 Anion Gap 9 BUN 15 Creatinine 1.0 Creat Clearance w eGFR > 60 Random Glucose 135 H Calcium 9.5 Total Bilirubin 0.8 AST 24 ALT 48 Alkaline Phosphatase 75 Total Protein 7.1 Albumin 3.7 Urine Color Yellow Urine Appearance Slcloudy Urine pH 5.0 Ur Specific [place] 1.026 Urine Protein Negative Urine Glucose (UA) Negative Urine Ketones Trace H Urine Blood Negative Urine Nitrite Negative Urine Bilirubin Negative Urine Urobilinogen Negative LABS NOTED. Assessment: 11/15/17 11:21 WITHDRAWAL SYMPTOMS. Plan: CONTINUE DETOX. INCREASE DAILY PO FLUID INTAKE. BGM ACBK FOR ELEVATED ADMISSION RANDOM GLUCOSE LEVEL.
[2017-11-15 11:37] LABS: URINE LEUK ESTERASE Negative (NEGATIVE)
--- NOTE | 2017-11-15 13:10 | CONSULT ---
[facility] Psychiatric Consult - Data Date of interview: 11/15/17 Admission source: [facility] Identifying data: Readmisssion to [facility] for this 56 y/o AA male seeking detox treatment on for heroin,cocaine and alcohol dependence.Patient is single without children,domiciled,unemployed and supported on [facility] benefits. Substance Abuse History: Confirmed by patient in this interview.See details in current [facility] report : Smoking history: Never smoked. Have you smoked in the past 12 months: No. Aproximately how many cigarettes per day: 0. Cigars Per Day: 0. Hx Chewing Tobacco Use: No. Initiated information on smoking cessation : No. - Substance & Tx. History. Hx Alcohol Use: No. Hx Substance Use: Yes. Substance Use Type: Heroin, Opiates. Hx Substance Use Treatment: Yes (08/2017 [facility]). - Substances Abused. Heroin. Route: Inhalation. Frequency: Daily. Amount used: 10 bags. Age of first use: 53. Date of Last Use: 11/14/17 Medical History: Bronchial asthma,hypertension,lower back pain and a history of spinal fusion (2005 and 2006) for herniated disks. Psychiatric History: Patient denies. Physical/Sexual Abuse/Trauma History: Patient denies. Additional Comment: Urine Drug Screen Results: OPI-Opiates, BZO-Benzodiazepines , MTD-Methadone, TCA-Tricyclic Antidepressant, OXY-Oxycodone.Noted. Mental Status Exam - Mental Status Exam Alert and Oriented to: Time, Place, Person Cognitive Function: Good Patient Appearance: Well Groomed Mood: Withdrawn, Hopeful, Euthymic Affect: Normal Range Patient Behavior: Fatigued, Appropriate, Cooperative Speech Pattern: Clear, Appropriate Voice Loudness: Normal Thought Process: Intact, Goal Oriented Thought Disorder: Not Present Hallucinations: Denies Suicidal Ideation: Denies Homicidal Ideation: Denies Insight/Judgement: Poor Sleep: Poorly, Difficulty falling asleep Appetite: Good Muscle strength/Tone: Normal Gait/Station: Normal Psychiatric Findings - Problem List ([place] 1, 2,3) (1) Opioid dependence with withdrawal Current Visit: Yes Status: Acute (2) Insomnia Current Visit: Yes Status: Acute - Initial Treatment Plan Initial Treatment Plan: Psychoeducation.Sleep hygiene.Detoxification.Ambien 10 mg po hs prn.Patient is informed of risk of parasomnias.he agress with tis plan of care.Observation.
--- NOTE | 2017-11-15 14:00 | EKG ---
Test Reason : Blood Pressure : / mmHG Vent. Rate : 060 BPM Atrial Rate : 060 BPM P-R Int : 142 ms QRS Dur : 102 ms QT Int : 396 ms P-R-T Axes : 051 027 036 degrees QTc Int : 396 ms NORMAL SINUS RHYTHM NONSPECIFIC ST ABNORMALITY NON-SPECIFIC INTRA-VENTRICULAR CONDUCTION DELAY WHEN COMPARED WITH ECG OF 04-SEP-2017 23:17, NO SIGNIFICANT CHANGE WAS FOUND Confirmed by KALLIE HUMPHREY MD ([id number]) on 11/15/2017 1:59:37 PM Referred By: Confirmed By:KALLIE HUMPHREY MD
[2017-11-15] MEDS: THIAMINE HCL 100 MG TABLET (FP) PO SCH (22:07)
[2017-11-15] MEDS: ZOLPIDEM TARTRATE 10 MG TABLET (PARK CARE ONLY) PO PRN (22:09)
[2017-11-16] MEDS ORDERED: METHADONE HCL 5 MG TABLET (FOR DETOX USE ONLY) PO ONE (10:00)
[2017-11-16] MEDS: diazePAM 5 MG TABLET PO PRN ×2 (10:29→21:59)
[2017-11-16] MEDS: amLODIPine BESYLATE 10 MG TABLET (FP) PO SCH (10:29)
[2017-11-16] MEDS: PRENATAL VITAMINS W/ FOLIC ACID TABLET (FP) PO SCH (10:29)
[2017-11-16] MEDS: RANITIDINE HCL 150 MG TABLET (FP) PO SCH ×2 (10:29→21:59)
--- NOTE | 2017-11-16 16:03 | PN ---
S COWS - Scale Resting Pulse: 0= [place] 80 or Below Sweatin= Chills/Flushing Restless Observation: 1= Difficult to Sit Still Pupil Size: 0= Normal to Room Light Bone or Joint Aches: 0= None Runny Nose/ Eye Tearin= None GI Upset > 30mins: 1= Stomach Cramp Tremor Observation of Outstretched Hands: 4= Gross Tremor/Twitching Yawning Observation: 1= 1-2x During Session Anxiety or Irritability: 2=Irritable/Anxious Goose Flesh Skin: 3=Piloerection COWS Score: 13 S Progress Note (SOAP) Subjective: Constipation, Tremors, Sweating, Anxious. Objective: PT. A & O X 3. NO ACUTE DISTRESS. 11/16/17 16:01 Vital Signs Temperature 97.4 F L 11/16/17 13:33 Pulse Rate 72 11/16/17 13:33 Respiratory Rate 19 11/16/17 13:33 Blood Pressure 138/85 11/16/17 13:33 O2 Sat by Pulse Oximetry (%) Laboratory Tests 11/14/17 11/15/17 11/15/17 20:10 07:00 07:00 WBC 6.0 RBC 4.55 Hgb 13.2 Hct 40.3 MCV 88.5 MCH 29.0 MCHC 32.8 RDW 13.5 Plt Count 186 MPV 8.3 Sodium 138 Potassium 3.5 D Chloride 104 Carbon Dioxide 25 Anion Gap 9 BUN 15 Creatinine 1.0 Creat Clearance w eGFR > 60 POC Glucometer Random Glucose 135 H Calcium 9.5 Total Bilirubin 0.8 AST 24 ALT 48 Alkaline Phosphatase 75 Total Protein 7.1 Albumin 3.7 Urine Color Yellow Urine Appearance Slcloudy Urine pH 5.0 Ur Specific [place] 1.026 Urine Protein Negative Urine Glucose (UA) Negative Urine Ketones Trace H Urine Blood Negative Urine Nitrite Negative Urine Bilirubin Negative Urine Urobilinogen Negative Ur Leukocyte Esterase Negative RPR Titer 11/15/17 11/16/17 07:00 06:03 WBC RBC Hgb Hct MCV MCH MCHC RDW Plt Count MPV Sodium Potassium Chloride Carbon Dioxide Anion Gap BUN Creatinine Creat Clearance w eGFR POC Glucometer 102 Random Glucose Calcium Total Bilirubin AST ALT Alkaline Phosphatase Total Protein Albumin Urine Color Urine Appearance Urine pH Ur Specific [place] Urine Protein Urine Glucose (UA) Urine Ketones Urine Blood Urine Nitrite Urine Bilirubin Urine Urobilinogen Ur Leukocyte Esterase RPR Titer Nonreactive LABS NOTED. Assessment: 11/16/17 16:02 WITHDRAWAL SYMPTOMS. Plan: CONTINUE DETOX.
[2017-11-16] MEDS: THIAMINE HCL 100 MG TABLET (FP) PO SCH (21:59)
[2017-11-16] MEDS: ACETAMINOPHEN 325 MG TABLET (FP) PO PRN (22:00)
[2017-11-17] MEDS ORDERED: METHADONE HCL 5 MG TABLET (FOR DETOX USE ONLY) PO ONE (10:00)
[2017-11-17] MEDS: amLODIPine BESYLATE 10 MG TABLET (FP) PO SCH (10:04)
[2017-11-17] MEDS: RANITIDINE HCL 150 MG TABLET (FP) PO SCH ×2 (10:04→22:07)
[2017-11-17] MEDS: PRENATAL VITAMINS W/ FOLIC ACID TABLET (FP) PO SCH (10:05)
[2017-11-17] MEDS: diazePAM 5 MG TABLET PO PRN (10:05)
[2017-11-17] MEDS: ACETAMINOPHEN 325 MG TABLET (FP) PO PRN (11:28)
--- NOTE | 2017-11-17 14:30 | PN ---
[facility] Progress Note (SOAP) Subjective: Tremor, sweating, headache Objective: 11/17/17 14:24 Last Vital Signs Temp Pulse Resp BP Pulse Ox 97.2 F L 65 20 123/82 11/17/17 09:38 11/17/17 09:38 11/17/17 09:38 11/17/17 09:38 Laboratory Tests 11/14/17 11/15/17 11/15/17 20:10 07:00 07:00 WBC 6.0 RBC 4.55 Hgb 13.2 Hct 40.3 MCV 88.5 MCH 29.0 MCHC 32.8 RDW 13.5 Plt Count 186 MPV 8.3 Sodium 138 Potassium 3.5 D Chloride 104 Carbon Dioxide 25 Anion Gap 9 BUN 15 Creatinine 1.0 Creat Clearance w eGFR > 60 POC Glucometer Random Glucose 135 H Calcium 9.5 Total Bilirubin 0.8 AST 24 ALT 48 Alkaline Phosphatase 75 Total Protein 7.1 Albumin 3.7 Urine Color Yellow Urine Appearance Slcloudy Urine pH 5.0 Ur Specific [place] 1.026 Urine Protein Negative Urine Glucose (UA) Negative Urine Ketones Trace H Urine Blood Negative Urine Nitrite Negative Urine Bilirubin Negative Urine Urobilinogen Negative Ur Leukocyte Esterase Negative RPR Titer 11/15/17 11/16/17 11/17/17 07:00 06:03 05:53 WBC RBC Hgb Hct MCV MCH MCHC RDW Plt Count MPV Sodium Potassium Chloride Carbon Dioxide Anion Gap BUN Creatinine Creat Clearance w eGFR POC Glucometer 102 130 Random Glucose Calcium Total Bilirubin AST ALT Alkaline Phosphatase Total Protein Albumin Urine Color Urine Appearance Urine pH Ur Specific [place] Urine Protein Urine Glucose (UA) Urine Ketones Urine Blood Urine Nitrite Urine Bilirubin Urine Urobilinogen Ur Leukocyte Esterase RPR Titer Nonreactive Labs noted: serum glucose 135, finger stick 130 Assessment: 11/17/17 14:26 Withdrawal symptoms Noted with hyperglycemia Plan: Continue detox Hyperglycemia: repeat fasting glucose in AM, send HbA1c, consider starting oral antidiabetic medication if warranted
[2017-11-17] MEDS: THIAMINE HCL 100 MG TABLET (FP) PO SCH (22:07)
[2017-11-17] MEDS: ZOLPIDEM TARTRATE 10 MG TABLET (PARK CARE ONLY) PO PRN (22:08)
[2017-11-18] MEDS ORDERED: METHADONE HCL 10 MG TABLET (FOR DETOX USE ONLY) PO ONE (10:00)
[2017-11-18] MEDS: TRIMETHOBENZAMIDE HCL 200MG/2ML INJ IM PRN ×2 (10:35→23:22)
[2017-11-18] MEDS: amLODIPine BESYLATE 10 MG TABLET (FP) PO SCH (12:11)
[2017-11-18] MEDS: RANITIDINE HCL 150 MG TABLET (FP) PO SCH ×2 (12:11→22:05)
[2017-11-18] MEDS: PRENATAL VITAMINS W/ FOLIC ACID TABLET (FP) PO SCH (12:11)
--- NOTE | 2017-11-18 14:43 | PN ---
[facility] Progress Note (SOAP) Subjective: N/V (vomited twice this morning), sweating Objective: 11/18/17 14:39 Last Vital Signs Temp Pulse Resp BP Pulse Ox 97.6 F 82 20 135/87 11/18/17 13:56 11/18/17 13:56 11/18/17 13:56 11/18/17 13:56 Laboratory Tests 11/14/17 11/15/17 11/15/17 20:10 07:00 07:00 WBC 6.0 RBC 4.55 Hgb 13.2 Hct 40.3 MCV 88.5 MCH 29.0 MCHC 32.8 RDW 13.5 Plt Count 186 MPV 8.3 Sodium 138 Potassium 3.5 D Chloride 104 Carbon Dioxide 25 Anion Gap 9 BUN 15 Creatinine 1.0 Creat Clearance w eGFR > 60 POC Glucometer Random Glucose 135 H Fasting Glucose Hemoglobin A1c % Calcium 9.5 Total Bilirubin 0.8 AST 24 ALT 48 Alkaline Phosphatase 75 Total Protein 7.1 Albumin 3.7 Urine Color Yellow Urine Appearance Slcloudy Urine pH 5.0 Ur Specific [place] 1.026 Urine Protein Negative Urine Glucose (UA) Negative Urine Ketones Trace H Urine Blood Negative Urine Nitrite Negative Urine Bilirubin Negative Urine Urobilinogen Negative Ur Leukocyte Esterase Negative RPR Titer 11/15/17 11/16/17 11/17/17 07:00 06:03 05:53 WBC RBC Hgb Hct MCV MCH MCHC RDW Plt Count MPV Sodium Potassium Chloride Carbon Dioxide Anion Gap BUN Creatinine Creat Clearance w eGFR POC Glucometer 102 130 Random Glucose Fasting Glucose Hemoglobin A1c % Calcium Total Bilirubin AST ALT Alkaline Phosphatase Total Protein Albumin Urine Color Urine Appearance Urine pH Ur Specific [place] Urine Protein Urine Glucose (UA) Urine Ketones Urine Blood Urine Nitrite Urine Bilirubin Urine Urobilinogen Ur Leukocyte Esterase RPR Titer Nonreactive 11/18/17 11/18/17 11/18/17 05:22 07:45 07:45 WBC RBC Hgb Hct MCV MCH MCHC RDW Plt Count MPV Sodium Potassium Chloride Carbon Dioxide Anion Gap BUN Creatinine Creat Clearance w eGFR POC Glucometer 123 Random Glucose Fasting Glucose 120 H Hemoglobin A1c % 6.2 H Calcium Total Bilirubin AST ALT Alkaline Phosphatase Total Protein Albumin Urine Color Urine Appearance Urine pH Ur Specific [place] Urine Protein Urine Glucose (UA) Urine Ketones Urine Blood Urine Nitrite Urine Bilirubin Urine Urobilinogen Ur Leukocyte Esterase RPR Titer Labs noted: hyperglycemia Assessment: 11/18/17 14:39 Withdrawal symptoms Noted with hyperglycemia r/t prediabetes Plan: Continue detox Encouraged to drink lots of water Tigan 200mg IM q8hr prn n/v Hyperglycemia secondary to prediabetes: lifestyle modification (diet and exercise as tolerated to lose weight), follow up with PCP for monitoring/ management
[2017-11-18] MEDS: THIAMINE HCL 100 MG TABLET (FP) PO SCH (22:04)
[2017-11-19] MEDS ORDERED: METHADONE HCL 5 MG TABLET (FOR DETOX USE ONLY) PO ONE (06:00)
[2017-11-19 09:05] VITALS: BP 137/88; PULSE 87; TEMP 98.2
== END 2017-11-19 08:30 | disposition home or self-care (01) | DRG 897 ==
LOC: YASAS 14:01 → Y3N 18:41
PROVIDERS: ADMIT Internal Medicine; ATTEND Internal Medicine
PROC: HZ2ZZZZ Detoxification Services for Substance Abuse Treatment (ICD-10-PCS; principal; 2017-11-14)
DX: F11.23 Opioid dependence with withdrawal (principal); F34.1 Dysthymic disorder; G47.00 Insomnia, unspecified; I10 Essential (primary) hypertension; J45.909 Unspecified asthma, uncomplicated; K21.9 Gastro-esophageal reflux disease without esophagitis; R73.9 Hyperglycemia, unspecified; M54.5 Low back pain; G89.29 Other chronic pain
CPT/HCPCS: 36415; 80053; 81003; 82947; 83036; 85027; 86593; 93005; 93010

== ENCOUNTER 2021-08-14 15:07 | Inpatient (IN) | payer MEDICARE, OTHER ==
[2021-08-14 17:52] VITALS: BMI 28.2
[2021-08-14] MEDS ORDERED: ALBUTEROL SO4 HFA INHALER IH PRN (19:10)
[2021-08-14] MEDS ORDERED: hydrOXYzine PAMOATE 25 MG CAPSULE (FP) PO PRN (19:27)
[2021-08-14] MEDS ORDERED: MAGNESIUM CITRATE 300 ML BOTTLE PO PRN (19:27)
[2021-08-14] MEDS ORDERED: BISMUTH SUBSALICYLATE 524 MG/30 ML PO PRN (19:27)
[2021-08-14] MEDS ORDERED: ACETAMINOPHEN 325 MG TABLET (FP) PO PRN (19:27)
[2021-08-14] MEDS ORDERED: ONDANSETRON *ODT* 4 MG TABLET SL PRN (19:27)
[2021-08-14] MEDS ORDERED: MAG HYDROX/AL HYDROX/SIMETH 30 ML UNIT-DOSE CUP PO PRN (19:27)
[2021-08-14] MEDS ORDERED: MAGNESIUM HYDROX 2400MG/30ML ORAL SUSPENSION 30 ML CUP PO PRN (19:27)
[2021-08-14] MEDS ORDERED: MENTHOL/PHENOL 1 EACH UD MM PRN (19:27)
[2021-08-14] MEDS ORDERED: cloNIDine HCL 0.1 MG TABLET PO PRN (19:29)
[2021-08-14] MEDS ORDERED: methaDONE HCL 10 MG TABLET (FOR DETOX USE ONLY) PO ONE (20:00)
[2021-08-14] MEDS: diazePAM 5 MG TABLET PO PRN (20:17)
[2021-08-14] MEDS: MELATONIN 5 MG TABLETS PO SCH (22:05)
[2021-08-14] MEDS: THIAMINE HCL 100 MG TABLET (FP) PO SCH (22:05)
[2021-08-14] MEDS: IBUPROFEN 400 MG TABLET (FP) PO PRN (22:07)
[2021-08-15] MEDS ORDERED: P-EPHED 60MG/TRIPROLIDI 2.5MG TABLET PO PRN (01:06)
[2021-08-15] MEDS ORDERED: PNEUMOC 13-VAL CONJ-DIP CRM/PF 0.5 ML DISP.SYRIN IM ONE (10:00)
[2021-08-15] MEDS: METHOCARBAMOL 500 MG TABLET PO PRN ×2 (10:17→22:34)
[2021-08-15] MEDS: amLODIPine BESYLATE 10 MG TABLET (FP) PO SCH (10:17)
[2021-08-15] MEDS: PRENATAL VITAMINS W/ FOLIC ACID TABLET (FP) PO SCH (10:17)
[2021-08-15] MEDS: IBUPROFEN 400 MG TABLET (FP) PO PRN ×2 (10:21→22:33)
[2021-08-15] MEDS: diazePAM 5 MG TABLET PO PRN (10:21)
[2021-08-15 11:39] LABS: CALCIUM 9.8 mg/dL (8.5-10.1)
[2021-08-15 11:40] LABS: ALBUMIN 3.6 g/dl (3.4-5.0); BLOOD UREA NITROGEN 10.4 mg/dL (7-18)
[2021-08-15 11:42] LABS: HEMATOCRIT 36.9 % (35.4-49); HEMOGLOBIN 12.3 GM/dL (11.7-16.9); MCH 29.4 pg (25.7-33.7); MCHC 33.4 g/dl (32.0-35.9); MEAN CELL VOLUME 88.1 fl (80-96); MEAN PLT VOLUME 7.7 fl (7.5-11.1); PLATELET COUNT 210 10^3/uL (134-434); RBC 4.19 M/mm3 (4.00-5.60); RDW 13.8 % (11.9-15.9); WHITE BLOOD COUNT 7.1 K/mm3 (4.0-10.0)
[2021-08-15 11:43] LABS: CREATININE 0.9 mg/dL (0.55-1.3)
[2021-08-15 11:45] LABS: BILIRUBIN,TOTAL 0.7 mg/dL (0.2-1); TOT PROT 7.7 g/dl (6.4-8.2)
[2021-08-15] MEDS ORDERED: PNEUMOCOCCAL 23 VACCINE 0.5 ML VIAL IM ONE (12:00)
[2021-08-15] MEDS: FLUTICASONE PROP 0.05% 16 GM NASAL SPRAY NS SCH ×2 (14:22→22:30)
[2021-08-15 14:31] LABS: HIV INTERPRETATION NEGATIVE (NEGATIVE)
[2021-08-15] MEDS: MELATONIN 5 MG TABLETS PO SCH (22:30)
[2021-08-15] MEDS: THIAMINE HCL 100 MG TABLET (FP) PO SCH (22:30)
[2021-08-16] MEDS ORDERED: methaDONE HCL 10 MG TABLET (FOR DETOX USE ONLY) PO ONE (10:00)
[2021-08-16] MEDS: FLUTICASONE PROP 0.05% 16 GM NASAL SPRAY NS SCH ×2 (10:53→22:04)
[2021-08-16] MEDS: amLODIPine BESYLATE 10 MG TABLET (FP) PO SCH (10:53)
[2021-08-16] MEDS: PRENATAL VITAMINS W/ FOLIC ACID TABLET (FP) PO SCH (10:53)
[2021-08-16] MEDS: IBUPROFEN 400 MG TABLET (FP) PO PRN (10:55)
[2021-08-16] MEDS: METHOCARBAMOL 500 MG TABLET PO PRN ×2 (10:55→22:05)
[2021-08-16] MEDS: THIAMINE HCL 100 MG TABLET (FP) PO SCH (22:03)
[2021-08-16] MEDS: MELATONIN 5 MG TABLETS PO SCH (22:03)
[2021-08-16] MEDS: ACETAMINOPHEN 325 MG TABLET (FP) PO PRN (22:04)
[2021-08-16] MEDS: diazePAM 5 MG TABLET PO PRN (22:07)
[2021-08-17] MEDS ORDERED: methaDONE HCL 10 MG TABLET (FOR DETOX USE ONLY) PO ONE (10:00)
[2021-08-17] MEDS: FLUTICASONE PROP 0.05% 16 GM NASAL SPRAY NS SCH ×2 (10:15→21:49)
[2021-08-17] MEDS: PRENATAL VITAMINS W/ FOLIC ACID TABLET (FP) PO SCH (10:15)
[2021-08-17] MEDS: amLODIPine BESYLATE 10 MG TABLET (FP) PO SCH (10:15)
[2021-08-17] MEDS: ACETAMINOPHEN 325 MG TABLET (FP) PO PRN ×2 (10:17→21:51)
[2021-08-17] MEDS: METHOCARBAMOL 500 MG TABLET PO PRN ×2 (10:17→21:50)
[2021-08-17] MEDS: THIAMINE HCL 100 MG TABLET (FP) PO SCH (21:49)
[2021-08-17] MEDS: MELATONIN 5 MG TABLETS PO SCH (21:49)
[2021-08-18 08:52] VITALS: BP 134/73; PULSE 75; TEMP 96.6
== END 2021-08-18 09:18 | disposition home or self-care (01) | DRG 897 ==
LOC: YASAS 15:07 → Y3N 19:22
PROVIDERS: ADMIT Allergy & Immunology; ATTEND Allergy & Immunology
PROC: HZ2ZZZZ Detoxification Services for Substance Abuse Treatment (ICD-10-PCS; principal; 2021-08-14)
DX: F11.23 Opioid dependence with withdrawal (principal); F14.20 Cocaine dependence, uncomplicated; F10.230 Alcohol dependence with withdrawal, uncomplicated; E11.9 Type 2 diabetes mellitus without complications; I10 Essential (primary) hypertension; J45.909 Unspecified asthma, uncomplicated; K21.9 Gastro-esophageal reflux disease without esophagitis; M54.5 Low back pain; G89.29 Other chronic pain; R09.81 Nasal congestion; Z91.013 Allergy to seafood
CPT/HCPCS: 36415; 80053; 82962; 85027; 86780; 87389; 90732; C9803; G0009; J0735; U0003; U0005

== ENCOUNTER 2022-08-06 12:20 | Inpatient (IN) | payer OTHER ==
[2022-08-06 13:21] VITALS: BMI 31.4
[2022-08-06] MEDS ORDERED: NICOTINE 10 MG CARTRIDGE (INHALER) IH PRN (14:03)
[2022-08-06] MEDS ORDERED: BENZOCAINE/MENTHOL (CHLORASEPTIC ) LOZENGE MM PRN (14:03)
[2022-08-06] MEDS ORDERED: MAGNESIUM CITRATE 300 ML BOTTLE PO PRN (14:03)
[2022-08-06] MEDS ORDERED: MAGNESIUM HYDROX 2400MG/30ML ORAL SUSPENSION 30 ML CUP PO PRN (14:03)
[2022-08-06] MEDS ORDERED: BISMUTH SUBSALICYLATE 524 MG/30 ML PO PRN (14:03)
[2022-08-06] MEDS ORDERED: cloNIDine HCL 0.1 MG TABLET PO PRN (14:03)
[2022-08-06] MEDS ORDERED: ACETAMINOPHEN 325 MG TABLET (FP) PO PRN (14:03)
[2022-08-06] MEDS ORDERED: MAG HYDROX/AL HYDROX/SIMETH 30 ML UNIT-DOSE CUP PO PRN (14:03)
[2022-08-06] MEDS ORDERED: LOPERAMIDE HCL 2 MG CAPSULE PO PRN (14:03)
[2022-08-06] MEDS ORDERED: IBUPROFEN 400 MG TABLET (FP) PO PRN (14:03)
[2022-08-06] MEDS ORDERED: chlordiazePOXIDE HCL 25 MG CAPSULE PO PRN (14:03)
[2022-08-06] MEDS ORDERED: DICYCLOMINE HCL 10 MG CAPSULE PO PRN (14:03)
[2022-08-06] MEDS ORDERED: ONDANSETRON *ODT* 4 MG TABLET SL PRN (14:03)
[2022-08-06] MEDS ORDERED: cloNIDine HCL 0.1 MG TABLET PO STA (14:04)
[2022-08-06] MEDS ORDERED: ALBUTEROL SO4 HFA INHALER IH PRN (14:10)
[2022-08-06] MEDS ORDERED: methaDONE HCL 10 MG TABLET (FOR DETOX USE ONLY) PO ONE (14:45)
[2022-08-06] MEDS: amLODIPine BESYLATE 10 MG TABLET (FP) PO SCH (15:08)
[2022-08-06] MEDS: METHOCARBAMOL 500 MG TABLET PO PRN ×2 (15:08→22:08)
[2022-08-06] MEDS: PRENATAL VITAMINS W/ FOLIC ACID TABLET (FP) PO SCH (15:09)
[2022-08-06] MEDS: IBUPROFEN 600 MG TABLET (FP) PO PRN (16:27)
[2022-08-06] MEDS: hydrOXYzine PAMOATE 25 MG CAPSULE (FP) PO SCH ×2 (17:34→22:07)
[2022-08-06] MEDS: chlordiazePOXIDE HCL 25 MG CAPSULE PO SCH ×2 (17:35→22:06)
[2022-08-06] MEDS: THIAMINE HCL 100 MG TABLET (FP) PO SCH (22:07)
[2022-08-06] MEDS: MELATONIN 5 MG TABLETS PO SCH (22:07)
[2022-08-07] MEDS: IBUPROFEN 600 MG TABLET (FP) PO PRN ×2 (01:23→22:31)
[2022-08-07] MEDS: hydrOXYzine PAMOATE 25 MG CAPSULE (FP) PO SCH ×5 (05:23→22:31)
[2022-08-07] MEDS: chlordiazePOXIDE HCL 25 MG CAPSULE PO SCH ×4 (05:23→22:32)
[2022-08-07] MEDS: PRENATAL VITAMINS W/ FOLIC ACID TABLET (FP) PO SCH (10:22)
[2022-08-07] MEDS: amLODIPine BESYLATE 10 MG TABLET (FP) PO SCH (10:23)
[2022-08-07] MEDS: METHOCARBAMOL 500 MG TABLET PO PRN (10:23)
[2022-08-07 11:19] LABS: HEMATOCRIT 35.7 % (35.4-49); HEMOGLOBIN 11.4 GM/dL (11.7-16.9); MCH 27.3 pg (25.7-33.7); MCHC 31.9 g/dl (32.0-35.9); MEAN CELL VOLUME 85.6 fl (80-96); MEAN PLT VOLUME 8.5 fl (7.5-11.1); PLATELET COUNT 196 10^3/uL (134-434); RBC 4.17 M/mm3 (4.00-5.60); RDW 15.1 % (11.9-15.9); WHITE BLOOD COUNT 4.6 K/mm3 (4.0-10.0)
[2022-08-07 12:03] LABS: CALCIUM 9.9 mg/dL (8.5-10.1)
[2022-08-07 12:04] LABS: ALBUMIN 3.2 g/dl (3.4-5.0); BLOOD UREA NITROGEN 14.2 mg/dL (7-18)
[2022-08-07 12:08] LABS: BILIRUBIN,TOTAL 0.5 mg/dL (0.2-1); TOT PROT 6.5 g/dl (6.4-8.2)
[2022-08-07] MEDS: LIDOCAINE 5% TOPICAL PATCH TP SCH (13:23)
[2022-08-07] MEDS: ACETAMINOPHEN 325 MG TABLET (FP) PO PRN (17:26)
[2022-08-07] MEDS: LIDOCAINE PATCH REMOVAL MC SCH (22:31)
[2022-08-07] MEDS: MELATONIN 5 MG TABLETS PO SCH (22:31)
[2022-08-07] MEDS: THIAMINE HCL 100 MG TABLET (FP) PO SCH (22:32)
[2022-08-07] MEDS: SUVOREXANT 10 MG TABLET PO PRN (22:34)
[2022-08-08] MEDS: hydrOXYzine PAMOATE 25 MG CAPSULE (FP) PO SCH ×5 (05:41→22:14)
[2022-08-08] MEDS: chlordiazePOXIDE HCL 25 MG CAPSULE PO SCH ×4 (05:41→22:14)
[2022-08-08] MEDS ORDERED: methaDONE HCL 10 MG TABLET (FOR DETOX USE ONLY) PO ONE (10:00)
[2022-08-08] MEDS: PRENATAL VITAMINS W/ FOLIC ACID TABLET (FP) PO SCH (10:19)
[2022-08-08] MEDS: amLODIPine BESYLATE 10 MG TABLET (FP) PO SCH (10:20)
[2022-08-08] MEDS: LIDOCAINE 5% TOPICAL PATCH TP SCH (10:20)
[2022-08-08] MEDS: METHOCARBAMOL 500 MG TABLET PO PRN (10:23)
[2022-08-08] MEDS: ACETAMINOPHEN 325 MG TABLET (FP) PO PRN (15:06)
[2022-08-08] MEDS: LIDOCAINE PATCH REMOVAL MC SCH (22:14)
[2022-08-08] MEDS: MELATONIN 5 MG TABLETS PO SCH (22:14)
[2022-08-08] MEDS: THIAMINE HCL 100 MG TABLET (FP) PO SCH (22:14)
[2022-08-08] MEDS: IBUPROFEN 600 MG TABLET (FP) PO PRN (22:16)
[2022-08-08] MEDS: SUVOREXANT 10 MG TABLET PO PRN (22:16)
[2022-08-09] MEDS ORDERED: chlordiazePOXIDE HCL 10 MG CAPSULE PO PRN
[2022-08-09] MEDS: chlordiazePOXIDE HCL 10 MG CAPSULE PO SCH ×4 (05:28→22:02)
[2022-08-09] MEDS: hydrOXYzine PAMOATE 25 MG CAPSULE (FP) PO SCH ×5 (05:29→22:03)
[2022-08-09] MEDS: LIDOCAINE 5% TOPICAL PATCH TP SCH (10:18)
[2022-08-09] MEDS: METHOCARBAMOL 500 MG TABLET PO PRN ×2 (10:20→22:03)
[2022-08-09] MEDS: IBUPROFEN 600 MG TABLET (FP) PO PRN ×2 (10:20→18:03)
[2022-08-09] MEDS: PRENATAL VITAMINS W/ FOLIC ACID TABLET (FP) PO SCH (10:20)
[2022-08-09] MEDS: amLODIPine BESYLATE 10 MG TABLET (FP) PO SCH (10:20)
[2022-08-09 18:27] VITALS: RESP 18
[2022-08-09] MEDS: SUVOREXANT 10 MG TABLET PO PRN (22:02)
[2022-08-09] MEDS: THIAMINE HCL 100 MG TABLET (FP) PO SCH (22:03)
[2022-08-09] MEDS: MELATONIN 5 MG TABLETS PO SCH (22:04)
[2022-08-09] MEDS: LIDOCAINE PATCH REMOVAL MC SCH (22:04)
[2022-08-10] MEDS ORDERED: chlordiazePOXIDE HCL 10 MG CAPSULE PO SCH (05:00)
[2022-08-10] MEDS: hydrOXYzine PAMOATE 25 MG CAPSULE (FP) PO SCH ×2 (07:46→10:08)
[2022-08-10 09:03] VITALS: BP 131/64; PULSE 64; TEMP 97.7
[2022-08-10] MEDS ORDERED: methaDONE HCL 10 MG TABLET (FOR DETOX USE ONLY) PO ONE (10:00)
[2022-08-10] MEDS: PRENATAL VITAMINS W/ FOLIC ACID TABLET (FP) PO SCH (10:07)
[2022-08-10] MEDS: METHOCARBAMOL 500 MG TABLET PO PRN (10:07)
[2022-08-10] MEDS: IBUPROFEN 600 MG TABLET (FP) PO PRN (10:07)
[2022-08-10] MEDS: amLODIPine BESYLATE 10 MG TABLET (FP) PO SCH (10:08)
[2022-08-10] MEDS: LIDOCAINE 5% TOPICAL PATCH TP SCH (10:09)
[2022-08-11] MEDS ORDERED: chlordiazePOXIDE HCL 10 MG CAPSULE PO ONE (05:00)
== END 2022-08-10 11:26 | disposition home or self-care (01) | DRG 897 ==
LOC: YASAS 12:20 → Y3N 14:09
PROVIDERS: ADMIT Allergy & Immunology; ATTEND Surgery
PROC: HZ2ZZZZ Detoxification Services for Substance Abuse Treatment (ICD-10-PCS; principal; 2022-08-06)
DX: F11.23 Opioid dependence with withdrawal (principal); F14.20 Cocaine dependence, uncomplicated; F19.282 Other psychoactive substance dependence with psychoactive substance-induced sleep disorder; F10.230 Alcohol dependence with withdrawal, uncomplicated; F19.24 Other psychoactive substance dependence with psychoactive substance-induced mood disorder; E11.9 Type 2 diabetes mellitus without complications; G47.00 Insomnia, unspecified; I10 Essential (primary) hypertension; J45.909 Unspecified asthma, uncomplicated; K21.9 Gastro-esophageal reflux disease without esophagitis; M54.50 Low back pain, unspecified; G89.29 Other chronic pain; Z98.1 Arthrodesis status; Z91.013 Allergy to seafood
CPT/HCPCS: 36415; 80053; 85027; 86780; C9803-CS; U0003; U0005

== ENCOUNTER 2022-12-05 14:19 | Inpatient (IN) | payer OTHER ==
[2022-12-05] MEDS ORDERED: cloNIDine HCL 0.1 MG TABLET PO PRN (15:50)
[2022-12-05] MEDS ORDERED: ACETAMINOPHEN 325 MG TABLET (FP) PO PRN ×2 (15:52)
[2022-12-05] MEDS ORDERED: DICYCLOMINE HCL 10 MG CAPSULE PO PRN (15:52)
[2022-12-05] MEDS ORDERED: LOPERAMIDE HCL 2 MG CAPSULE PO PRN (15:52)
[2022-12-05] MEDS ORDERED: hydrOXYzine PAMOATE 25 MG CAPSULE (FP) PO PRN (15:52)
[2022-12-05] MEDS ORDERED: MAG HYDROX/AL HYDROX/SIMETH 30 ML UNIT-DOSE CUP PO PRN (15:52)
[2022-12-05] MEDS ORDERED: NALOXONE HCL (KLOXXADO) 8 MG SPRAY NS PRN (15:52)
[2022-12-05] MEDS ORDERED: IBUPROFEN 400 MG TABLET (FP) PO PRN (15:52)
[2022-12-05] MEDS ORDERED: ONDANSETRON *ODT* 4 MG TABLET SL PRN (15:52)
[2022-12-05] MEDS ORDERED: BACLOFEN 10 MG TABLET (FP) PO PRN (15:52)
[2022-12-05] MEDS ORDERED: BISMUTH SUBSALICYLATE 524 MG/30 ML PO PRN (15:52)
[2022-12-05] MEDS ORDERED: MAGNESIUM HYDROX 2400MG/30ML ORAL SUSPENSION 30 ML CUP PO PRN (15:52)
[2022-12-05] MEDS ORDERED: POLYETHYLENE GLYCOL (HEALTHYLAX) 3350 17 GM PACKET PO PRN (15:52)
[2022-12-05] MEDS ORDERED: ALBUTEROL SO4 HFA INHALER IH PRN (15:55)
[2022-12-05] MEDS ORDERED: methaDONE HCL 10 MG TABLET (FOR DETOX USE ONLY) PO ONE ×2 (16:00→17:15)
[2022-12-05] MEDS: diazePAM 5 MG TABLET PO PRN ×2 (17:36→22:04)
[2022-12-05] MEDS: IBUPROFEN 600 MG TABLET (FP) PO PRN (17:38)
[2022-12-05] MEDS: METHOCARBAMOL 500 MG TABLET PO PRN (17:38)
[2022-12-05] MEDS: MELATONIN 5 MG TABLETS PO SCH (22:04)
[2022-12-05] MEDS: THIAMINE HCL 100 MG TABLET (FP) PO SCH (22:04)
[2022-12-06] MEDS: diazePAM 5 MG TABLET PO PRN ×2 (05:24→22:09)
[2022-12-06] MEDS: PRENATAL VITAMINS W/ FOLIC ACID TABLET (FP) PO SCH (09:57)
[2022-12-06] MEDS: amLODIPine BESYLATE 10 MG TABLET (FP) PO SCH (09:57)
[2022-12-06] MEDS: METHOCARBAMOL 500 MG TABLET PO PRN ×2 (10:02→17:56)
[2022-12-06 12:09] LABS: HEMATOCRIT 31.8 % (35.4-49); HEMOGLOBIN 10.6 GM/dL (11.7-16.9); MCH 28.4 pg (25.7-33.7); MCHC 33.4 g/dl (32.0-35.9); MEAN CELL VOLUME 85.2 fl (80-96); MEAN PLT VOLUME 8.4 fl (7.5-11.1); PLATELET COUNT 151 10^3/uL (134-434); RBC 3.73 M/mm3 (4.00-5.60); RDW 14.8 % (11.9-15.9); WHITE BLOOD COUNT 5.2 K/mm3 (4.0-10.0)
[2022-12-06 12:26] LABS: CALCIUM 9.4 mg/dL (8.5-10.1)
[2022-12-06 12:27] LABS: ALBUMIN 2.9 g/dl (3.4-5.0); BLOOD UREA NITROGEN 10.6 mg/dL (7-18)
[2022-12-06 12:29] LABS: CREATININE 0.9 mg/dL (0.55-1.3)
[2022-12-06 12:31] LABS: BILIRUBIN,TOTAL 0.3 mg/dL (0.2-1); TOT PROT 6.1 g/dl (6.4-8.2)
[2022-12-06] MEDS: IBUPROFEN 600 MG TABLET (FP) PO PRN (17:56)
[2022-12-06] MEDS: THIAMINE HCL 100 MG TABLET (FP) PO SCH (22:09)
[2022-12-06] MEDS: MELATONIN 5 MG TABLETS PO SCH (22:09)
[2022-12-06 22:54] LABS: URINE APPEARANCE CLEAR; URINE BILIRUBIN NEGATIVE (NEGATIVE); URINE COLOR YELLOW; URINE GLUCOSE (UA) NEGATIVE (NEGATIVE); URINE KETONE NEGATIVE (NEGATIVE); URINE LEUK ESTERASE NEGATIVE (NEGATIVE); URINE NITRITE NEGATIVE (NEGATIVE); URINE PROTEIN NEGATIVE (NEGATIVE); URINE UROBILINOGEN 0.2 mg/dL (0.2-1.0)
[2022-12-07] MEDS ORDERED: methaDONE HCL 10 MG TABLET (FOR DETOX USE ONLY) PO ONE (10:00)
[2022-12-07] MEDS: amLODIPine BESYLATE 10 MG TABLET (FP) PO SCH (10:08)
[2022-12-07] MEDS: PRENATAL VITAMINS W/ FOLIC ACID TABLET (FP) PO SCH (10:08)
[2022-12-07] MEDS: METHOCARBAMOL 500 MG TABLET PO PRN (10:09)
[2022-12-07] MEDS: IBUPROFEN 600 MG TABLET (FP) PO PRN (10:10)
[2022-12-07] MEDS ORDERED: GABAPENTIN 300 MG CAPSULE PO ONE (11:00)
[2022-12-07] MEDS: THIAMINE HCL 100 MG TABLET (FP) PO SCH (22:12)
[2022-12-07] MEDS: MELATONIN 5 MG TABLETS PO SCH (22:12)
[2022-12-07] MEDS: GABAPENTIN 300 MG CAPSULE PO SCH (22:12)
[2022-12-08] MEDS: GABAPENTIN 300 MG CAPSULE PO SCH ×2 (09:39→22:22)
[2022-12-08] MEDS: METHOCARBAMOL 500 MG TABLET PO PRN ×2 (09:39→22:22)
[2022-12-08] MEDS: PRENATAL VITAMINS W/ FOLIC ACID TABLET (FP) PO SCH (09:39)
[2022-12-08] MEDS: amLODIPine BESYLATE 10 MG TABLET (FP) PO SCH (09:39)
[2022-12-08 21:17] VITALS: RESP 18
[2022-12-08] MEDS: MELATONIN 5 MG TABLETS PO SCH (22:22)
[2022-12-08] MEDS: THIAMINE HCL 100 MG TABLET (FP) PO SCH (22:22)
[2022-12-08] MEDS: IBUPROFEN 600 MG TABLET (FP) PO PRN (22:23)
[2022-12-09 09:33] VITALS: BP 124/76; PULSE 64; TEMP 96.8
[2022-12-09] MEDS ORDERED: methaDONE HCL 10 MG TABLET (FOR DETOX USE ONLY) PO ONE (10:00)
[2022-12-09] MEDS: PRENATAL VITAMINS W/ FOLIC ACID TABLET (FP) PO SCH (10:12)
[2022-12-09] MEDS: amLODIPine BESYLATE 10 MG TABLET (FP) PO SCH (10:12)
[2022-12-09] MEDS: METHOCARBAMOL 500 MG TABLET PO PRN (10:12)
[2022-12-09] MEDS: GABAPENTIN 300 MG CAPSULE PO SCH (10:12)
== END 2022-12-09 11:37 | disposition home or self-care (01) | DRG 897 ==
LOC: YASAS 14:19 → Y3N 16:08
PROVIDERS: ADMIT Allergy & Immunology; ATTEND Surgery
PROC: HZ2ZZZZ Detoxification Services for Substance Abuse Treatment (ICD-10-PCS; principal; 2022-12-05)
DX: F11.23 Opioid dependence with withdrawal (principal); F14.20 Cocaine dependence, uncomplicated; D64.9 Anemia, unspecified; I10 Essential (primary) hypertension; J45.909 Unspecified asthma, uncomplicated; K21.9 Gastro-esophageal reflux disease without esophagitis; K59.01 Slow transit constipation; G56.02 Carpal tunnel syndrome, left upper limb; R73.9 Hyperglycemia, unspecified
CPT/HCPCS: 36415; 80053; 81003; 85027; 86780; C9803-CS; U0003; U0005

== ENCOUNTER 2023-01-18 11:43 | Inpatient (IN) | payer OTHER ==
[2023-01-18 12:08] VITALS: BMI 31.6
[2023-01-18] MEDS ORDERED: POLYETHYLENE GLYCOL (HEALTHYLAX) 3350 17 GM PACKET PO PRN (14:08)
[2023-01-18] MEDS ORDERED: DICYCLOMINE HCL 10 MG CAPSULE PO PRN (14:08)
[2023-01-18] MEDS ORDERED: BISMUTH SUBSALICYLATE 262 MG/15 ML BTL PO PRN (14:08)
[2023-01-18] MEDS ORDERED: NALOXONE HCL (KLOXXADO) 8 MG SPRAY NS PRN (14:08)
[2023-01-18] MEDS ORDERED: ACETAMINOPHEN 325 MG TABLET (FP) PO PRN (14:08)
[2023-01-18] MEDS ORDERED: LOPERAMIDE HCL 2 MG CAPSULE PO PRN (14:08)
[2023-01-18] MEDS ORDERED: cloNIDine HCL 0.1 MG TABLET PO PRN (14:08)
[2023-01-18] MEDS ORDERED: BENZOCAINE/MENTHOL (CHLORASEPTIC ) LOZENGE MM PRN (14:08)
[2023-01-18] MEDS ORDERED: ONDANSETRON *ODT* 4 MG TABLET SL PRN (14:08)
[2023-01-18] MEDS ORDERED: IBUPROFEN 400 MG TABLET (FP) PO PRN (14:08)
[2023-01-18] MEDS ORDERED: MAG HYDROX/AL HYDROX/SIMETH 30 ML UNIT-DOSE CUP PO PRN (14:08)
[2023-01-18] MEDS ORDERED: MAGNESIUM HYDROX 2400MG/30ML ORAL SUSPENSION 30 ML CUP PO PRN (14:08)
[2023-01-18] MEDS ORDERED: IBUPROFEN 600 MG TABLET (FP) PO PRN (14:08)
[2023-01-18] MEDS ORDERED: ALBUTEROL SO4 HFA INHALER IH PRN (14:15)
[2023-01-18] MEDS: LISINOPRIL 20 MG TABLET PO SCH (15:25)
[2023-01-18] MEDS: amLODIPine BESYLATE 10 MG TABLET (FP) PO SCH (15:25)
[2023-01-18] MEDS: PRENATAL VITAMINS W/ FOLIC ACID TABLET (FP) PO SCH (15:25)
[2023-01-18] MEDS ORDERED: amLODIPine BESYLATE 5 MG TABLET (FP) ONE (15:27)
[2023-01-18] MEDS ORDERED: LISINOPRIL 10 MG TABLET ONE (15:27)
[2023-01-18] MEDS ORDERED: PRENATAL VITAMINS W/ FOLIC ACID TABLET (FP) PO ONE (15:27)
[2023-01-18] MEDS ORDERED: ACETAMINOPHEN 325 MG TABLET (FP) ONE (15:32)
[2023-01-18] MEDS: ACETAMINOPHEN 325 MG TABLET (FP) PO PRN (16:10)
[2023-01-18] MEDS: INSULIN SLIDING SCALE (NOVOLOG) 1 VIAL SQ SCH (17:28)
[2023-01-18] MEDS: GABAPENTIN 300 MG CAPSULE PO SCH (21:38)
[2023-01-18] MEDS: MELATONIN 5 MG TABLETS PO SCH (21:38)
[2023-01-18] MEDS: THIAMINE HCL 100 MG TABLET (FP) PO SCH (21:38)
[2023-01-18] MEDS ORDERED: methaDONE HCL 10 MG TABLET (FOR DETOX USE ONLY) PO ONE (22:00)
[2023-01-19] MEDS: GABAPENTIN 300 MG CAPSULE PO SCH ×3 (05:36→22:09)
[2023-01-19] MEDS: ACETAMINOPHEN 325 MG TABLET (FP) PO PRN (05:36)
[2023-01-19] MEDS: INSULIN SLIDING SCALE (NOVOLOG) 1 VIAL SQ SCH ×2 (06:31→16:53)
[2023-01-19] MEDS: PRENATAL VITAMINS W/ FOLIC ACID TABLET (FP) PO SCH (10:22)
[2023-01-19] MEDS: LISINOPRIL 20 MG TABLET PO SCH (10:22)
[2023-01-19] MEDS: amLODIPine BESYLATE 10 MG TABLET (FP) PO SCH (10:23)
[2023-01-19 11:24] LABS: HEMATOCRIT 33.3 % (35.4-49); MCH 29.1 pg (25.7-33.7); MCHC 33.2 g/dl (32.0-35.9); MEAN CELL VOLUME 87.6 fl (80-96); MEAN PLT VOLUME 8.3 fl (7.5-11.1); PLATELET COUNT 171 10^3/uL (134-434); RDW 15.2 % (11.9-15.9); WHITE BLOOD COUNT 4.6 K/mm3 (4.0-10.0)
[2023-01-19 11:44] LABS: BLOOD UREA NITROGEN 15.7 mg/dL (7-18)
[2023-01-19 11:45] LABS: ALBUMIN 3.3 g/dl (3.4-5.0)
[2023-01-19 11:46] LABS: CALCIUM 9.6 mg/dL (8.5-10.1)
[2023-01-19 11:48] LABS: CREATININE 1.1 mg/dL (0.55-1.3)
[2023-01-19 11:51] LABS: BILIRUBIN,TOTAL 0.4 mg/dL (0.2-1); TOT PROT 6.4 g/dl (6.4-8.2)
[2023-01-19] MEDS: MELATONIN 5 MG TABLETS PO SCH (22:08)
[2023-01-19] MEDS: THIAMINE HCL 100 MG TABLET (FP) PO SCH (22:08)
[2023-01-19] MEDS: METHOCARBAMOL 500 MG TABLET PO PRN (22:08)
[2023-01-19] MEDS: hydrOXYzine PAMOATE 25 MG CAPSULE (FP) PO PRN (22:09)
[2023-01-20] MEDS: GABAPENTIN 300 MG CAPSULE PO SCH ×3 (05:26→21:57)
[2023-01-20] MEDS: INSULIN SLIDING SCALE (NOVOLOG) 1 VIAL SQ SCH ×2 (06:41→17:39)
[2023-01-20] MEDS ORDERED: methaDONE HCL 10 MG TABLET (FOR DETOX USE ONLY) PO ONE (10:00)
[2023-01-20] MEDS: PRENATAL VITAMINS W/ FOLIC ACID TABLET (FP) PO SCH (10:09)
[2023-01-20] MEDS: amLODIPine BESYLATE 10 MG TABLET (FP) PO SCH (10:11)
[2023-01-20] MEDS: LISINOPRIL 20 MG TABLET PO SCH (10:11)
[2023-01-20] MEDS: METHOCARBAMOL 500 MG TABLET PO PRN ×2 (10:11→21:57)
[2023-01-20] MEDS: MELATONIN 5 MG TABLETS PO SCH (21:57)
[2023-01-20] MEDS: THIAMINE HCL 100 MG TABLET (FP) PO SCH (21:57)
[2023-01-20] MEDS: hydrOXYzine PAMOATE 25 MG CAPSULE (FP) PO PRN (21:58)
[2023-01-21] MEDS: GABAPENTIN 300 MG CAPSULE PO SCH (05:14)
[2023-01-21] MEDS: ACETAMINOPHEN 325 MG TABLET (FP) PO PRN (05:14)
[2023-01-21] MEDS: INSULIN SLIDING SCALE (NOVOLOG) 1 VIAL SQ SCH (06:49)
[2023-01-21 09:39] VITALS: BP 147/81; PULSE 72; RESP 17; TEMP 96.9
[2023-01-21] MEDS: LISINOPRIL 20 MG TABLET PO SCH (10:57)
[2023-01-21] MEDS: amLODIPine BESYLATE 10 MG TABLET (FP) PO SCH (10:57)
[2023-01-21] MEDS: PRENATAL VITAMINS W/ FOLIC ACID TABLET (FP) PO SCH (10:57)
[2023-01-22] MEDS ORDERED: methaDONE HCL 10 MG TABLET (FOR DETOX USE ONLY) PO ONE (10:00)
== END 2023-01-21 09:31 | disposition left against medical advice (07) | DRG 894 ==
LOC: YASAS 11:43 → Y3N 15:41
PROVIDERS: ADMIT Allergy & Immunology; ATTEND Surgery
PROC: HZ2ZZZZ Detoxification Services for Substance Abuse Treatment (ICD-10-PCS; principal; 2023-01-18)
DX: F11.23 Opioid dependence with withdrawal (principal); F14.20 Cocaine dependence, uncomplicated; F10.20 Alcohol dependence, uncomplicated; I10 Essential (primary) hypertension; J45.909 Unspecified asthma, uncomplicated; K59.01 Slow transit constipation; E11.9 Type 2 diabetes mellitus without complications; Z79.4 Long term (current) use of insulin; M54.50 Low back pain, unspecified; G89.29 Other chronic pain
CPT/HCPCS: 36415; 80053; 82962; 85027; 86780; 87811; C9803-CS; U0003; U0005

== ENCOUNTER 2023-03-02 18:11 | Inpatient (IN) | payer OTHER ==
[2023-03-02 19:03] VITALS: BMI 30.3
[2023-03-02] MEDS ORDERED: ALBUTEROL SO4 HFA INHALER IH PRN (20:59)
[2023-03-02] MEDS ORDERED: IBUPROFEN 600 MG TABLET (FP) PO PRN (21:02)
[2023-03-02] MEDS ORDERED: DICYCLOMINE HCL 10 MG CAPSULE PO PRN (21:02)
[2023-03-02] MEDS ORDERED: P-EPHED 60MG/TRIPROLIDI 2.5MG TABLET PO PRN (21:02)
[2023-03-02] MEDS ORDERED: POLYETHYLENE GLYCOL (HEALTHYLAX) 3350 17 GM PACKET PO PRN (21:02)
[2023-03-02] MEDS ORDERED: LOPERAMIDE HCL 2 MG CAPSULE PO PRN (21:02)
[2023-03-02] MEDS ORDERED: BENZOCAINE/MENTHOL (CHLORASEPTIC ) LOZENGE MM PRN (21:02)
[2023-03-02] MEDS ORDERED: guaiFENesin 600 MG TABLET.ER (FP) PO PRN (21:02)
[2023-03-02] MEDS ORDERED: NALOXONE HCL (KLOXXADO) 8 MG SPRAY NS PRN (21:02)
[2023-03-02] MEDS ORDERED: NALOXONE HCL 0.4 MG/ML VIAL IM PRN (21:02)
[2023-03-02] MEDS ORDERED: MAGNESIUM HYDROX 2400MG/30ML ORAL SUSPENSION 30 ML CUP PO PRN (21:02)
[2023-03-02] MEDS ORDERED: MAG HYDROX/AL HYDROX/SIMETH 30 ML UNIT-DOSE CUP PO PRN (21:02)
[2023-03-02] MEDS ORDERED: BISMUTH SUBSALICYLATE 524 MG/30 ML PO PRN (21:02)
[2023-03-02] MEDS ORDERED: IBUPROFEN 400 MG TABLET (FP) PO PRN (21:02)
[2023-03-02] MEDS ORDERED: BENZONATATE 200 MG CAPSULE PO PRN (21:02)
[2023-03-02] MEDS ORDERED: METHOCARBAMOL 500 MG TABLET PO PRN (21:02)
[2023-03-02] MEDS ORDERED: ONDANSETRON *ODT* 4 MG TABLET SL PRN (21:02)
[2023-03-02] MEDS: MELATONIN 5 MG TABLETS PO PRN (22:36)
[2023-03-02] MEDS: GABAPENTIN 300 MG CAPSULE PO SCH (22:38)
[2023-03-02] MEDS: hydrOXYzine PAMOATE 25 MG CAPSULE (FP) PO PRN (22:39)
[2023-03-02] MEDS: THIAMINE HCL 100 MG TABLET (FP) PO SCH (22:39)
[2023-03-03] MEDS: GABAPENTIN 300 MG CAPSULE PO SCH ×3 (05:55→22:28)
[2023-03-03] MEDS ORDERED: cloNIDine HCL 0.1 MG TABLET PO PRN (08:41)
[2023-03-03] MEDS ORDERED: methaDONE HCL 10 MG TABLET (FOR DETOX USE ONLY) PO ONE ×2 (08:41→10:00)
[2023-03-03] MEDS: hydrOXYzine PAMOATE 25 MG CAPSULE (FP) PO PRN (10:03)
[2023-03-03] MEDS: PRENATAL VITAMINS W/ FOLIC ACID TABLET (FP) PO SCH (10:03)
[2023-03-03] MEDS: LISINOPRIL 10 MG TABLET PO SCH (10:03)
[2023-03-03 12:22] LABS: HEMATOCRIT 33.7 % (35.4-49); HEMOGLOBIN 11.4 GM/dL (11.7-16.9); MCH 29.6 pg (25.7-33.7); MCHC 33.8 g/dl (32.0-35.9); MEAN CELL VOLUME 87.5 fl (80-96); MEAN PLT VOLUME 8.5 fl (7.5-11.1); PLATELET COUNT 158 10^3/uL (134-434); RBC 3.85 M/mm3 (4.00-5.60); RDW 14.4 % (11.9-15.9); WHITE BLOOD COUNT 5.1 K/mm3 (4.0-10.0)
[2023-03-03 12:29] LABS: BLOOD UREA NITROGEN 14.6 mg/dL (7-18); CALCIUM 9.5 mg/dL (8.5-10.1)
[2023-03-03 12:30] LABS: ALBUMIN 3.2 g/dl (3.4-5.0)
[2023-03-03 12:33] LABS: CREATININE 1.1 mg/dL (0.55-1.3)
[2023-03-03 12:34] LABS: BILIRUBIN,TOTAL 0.4 mg/dL (0.2-1); TOT PROT 6.5 g/dl (6.4-8.2)
[2023-03-03] MEDS: ACETAMINOPHEN 325 MG TABLET (FP) PO PRN (22:27)
[2023-03-03] MEDS: MELATONIN 5 MG TABLETS PO PRN (22:28)
[2023-03-03] MEDS: THIAMINE HCL 100 MG TABLET (FP) PO SCH (22:28)
[2023-03-04] MEDS: GABAPENTIN 300 MG CAPSULE PO SCH ×3 (05:47→22:19)
[2023-03-04 09:46] VITALS: RESP 18
[2023-03-04] MEDS: PRENATAL VITAMINS W/ FOLIC ACID TABLET (FP) PO SCH (10:02)
[2023-03-04] MEDS: LISINOPRIL 10 MG TABLET PO SCH (10:02)
[2023-03-04] MEDS: ACETAMINOPHEN 325 MG TABLET (FP) PO PRN ×2 (10:04→22:21)
[2023-03-04] MEDS: hydrOXYzine PAMOATE 25 MG CAPSULE (FP) PO PRN (11:28)
[2023-03-04] MEDS: amLODIPine BESYLATE 10 MG TABLET (FP) PO SCH (12:31)
[2023-03-04] MEDS: THIAMINE HCL 100 MG TABLET (FP) PO SCH (22:19)
[2023-03-04] MEDS: MELATONIN 5 MG TABLETS PO PRN (22:20)
[2023-03-05] MEDS: GABAPENTIN 300 MG CAPSULE PO SCH (05:43)
[2023-03-05] MEDS: ACETAMINOPHEN 325 MG TABLET (FP) PO PRN (05:44)
[2023-03-05 09:28] VITALS: BP 139/72; PULSE 67; TEMP 96.2
[2023-03-05] MEDS ORDERED: methaDONE HCL 10 MG TABLET (FOR DETOX USE ONLY) PO ONE (10:00)
[2023-03-05] MEDS: LISINOPRIL 10 MG TABLET PO SCH (10:38)
[2023-03-05] MEDS: amLODIPine BESYLATE 10 MG TABLET (FP) PO SCH (10:38)
[2023-03-05] MEDS: PRENATAL VITAMINS W/ FOLIC ACID TABLET (FP) PO SCH (10:38)
[2023-03-07] MEDS ORDERED: methaDONE HCL 10 MG TABLET (FOR DETOX USE ONLY) PO ONE (10:00)
== END 2023-03-05 11:05 | disposition left against medical advice (07) | DRG 894 ==
LOC: YASAS 18:11 → Y6N 21:19
PROVIDERS: ADMIT Allergy & Immunology; ATTEND Surgery
PROC: HZ2ZZZZ Detoxification Services for Substance Abuse Treatment (ICD-10-PCS; principal; 2023-03-02)
DX: F11.23 Opioid dependence with withdrawal (principal); F14.20 Cocaine dependence, uncomplicated; G47.00 Insomnia, unspecified; I10 Essential (primary) hypertension; J45.909 Unspecified asthma, uncomplicated; M54.50 Low back pain, unspecified; G89.29 Other chronic pain
CPT/HCPCS: 36415; 80053; 85027; 86780; C9803-CS; U0003; U0005

== ENCOUNTER 2023-06-04 10:27 | Inpatient (IN) | payer OTHER ==
[2023-06-04 10:49] VITALS: BMI 31.4
[2023-06-04] MEDS ORDERED: hydrOXYzine PAMOATE 25 MG CAPSULE (FP) PO PRN (11:11)
[2023-06-04] MEDS ORDERED: BISMUTH SUBSALICYLATE 262 MG/15 ML BTL PO PRN (11:11)
[2023-06-04] MEDS ORDERED: MAG HYDROX/AL HYDROX/SIMETH 30 ML UNIT-DOSE CUP PO PRN (11:11)
[2023-06-04] MEDS ORDERED: DICYCLOMINE HCL 10 MG CAPSULE PO PRN (11:11)
[2023-06-04] MEDS ORDERED: NALOXONE HCL (KLOXXADO) 8 MG SPRAY NS PRN (11:11)
[2023-06-04] MEDS ORDERED: ONDANSETRON *ODT* 4 MG TABLET SL PRN (11:11)
[2023-06-04] MEDS ORDERED: IBUPROFEN 400 MG TABLET (FP) PO PRN (11:11)
[2023-06-04] MEDS ORDERED: guaiFENesin 600 MG TABLET.ER (FP) PO PRN (11:11)
[2023-06-04] MEDS ORDERED: MAGNESIUM HYDROX 2400MG/30ML ORAL SUSPENSION 30 ML CUP PO PRN (11:11)
[2023-06-04] MEDS ORDERED: POLYETHYLENE GLYCOL (HEALTHYLAX) 3350 17 GM PACKET PO PRN (11:11)
[2023-06-04] MEDS ORDERED: BENZOCAINE/MENTHOL (CHLORASEPTIC ) LOZENGE MM PRN (11:11)
[2023-06-04] MEDS ORDERED: IBUPROFEN 600 MG TABLET (FP) PO PRN (11:11)
[2023-06-04] MEDS ORDERED: LOPERAMIDE HCL 2 MG CAPSULE PO PRN (11:11)
[2023-06-04] MEDS ORDERED: NALOXONE HCL 0.4 MG/ML VIAL IM PRN (11:11)
[2023-06-04] MEDS ORDERED: BENZONATATE 200 MG CAPSULE PO PRN (11:11)
[2023-06-04] MEDS ORDERED: methaDONE HCL 10 MG TABLET (FOR DETOX USE ONLY) PO ONE (12:01)
[2023-06-04] MEDS ORDERED: cloNIDine HCL 0.1 MG TABLET PO PRN (12:01)
[2023-06-04] MEDS ORDERED: ALBUTEROL SO4 HFA INHALER IH ONE (13:14)
[2023-06-04] MEDS ORDERED: ALBUTEROL SO4 HFA INHALER IH PRN (14:24)
[2023-06-04] MEDS: diazePAM 5 MG TABLET PO PRN (22:09)
[2023-06-04] MEDS: THIAMINE HCL 100 MG TABLET (FP) PO SCH (22:09)
[2023-06-04] MEDS: METHOCARBAMOL 500 MG TABLET PO PRN (22:09)
[2023-06-04] MEDS: MELATONIN 5 MG TABLETS PO SCH (22:09)
[2023-06-05] MEDS: PRENATAL VITAMINS W/ FOLIC ACID TABLET (FP) PO SCH (10:06)
[2023-06-05] MEDS: amLODIPine BESYLATE 10 MG TABLET (FP) PO SCH (10:06)
[2023-06-05] MEDS: LISINOPRIL 20 MG TABLET PO SCH (10:06)
[2023-06-05] MEDS: diazePAM 5 MG TABLET PO PRN ×2 (10:08→22:09)
[2023-06-05 11:56] LABS: HEMATOCRIT 34.6 % (35.4-49); HEMOGLOBIN 11.5 GM/dL (11.7-16.9); MCH 29.2 pg (25.7-33.7); MCHC 33.3 g/dl (32.0-35.9); MEAN CELL VOLUME 87.7 fl (80-96); MEAN PLT VOLUME 8.5 fl (7.5-11.1); PLATELET COUNT 179 10^3/uL (134-434); RBC 3.95 M/mm3 (4.00-5.60); RDW 14.3 % (11.9-15.9); WHITE BLOOD COUNT 8.5 K/mm3 (4.0-10.0)
[2023-06-05 12:31] LABS: POTASSIUM 4.5 mmol/L (3.5-5.1)
[2023-06-05 12:39] LABS: CREATININE 1.7 mg/dL (0.55-1.3)
[2023-06-05 12:40] LABS: TOT PROT 7.6 g/dl (6.4-8.2)
[2023-06-05 12:41] LABS: CALCIUM 10.6 mg/dL (8.5-10.1)
[2023-06-05 12:47] LABS: BILIRUBIN,TOTAL 0.6 mg/dL (0.2-1)
[2023-06-05] MEDS: THIAMINE HCL 100 MG TABLET (FP) PO SCH (22:07)
[2023-06-05] MEDS: MELATONIN 5 MG TABLETS PO SCH (22:07)
[2023-06-05] MEDS: ACETAMINOPHEN 325 MG TABLET (FP) PO PRN (22:07)
[2023-06-05] MEDS: METHOCARBAMOL 500 MG TABLET PO PRN (22:09)
[2023-06-06] MEDS ORDERED: methaDONE HCL 10 MG TABLET (FOR DETOX USE ONLY) PO ONE (10:00)
[2023-06-06] MEDS: amLODIPine BESYLATE 10 MG TABLET (FP) PO SCH (10:07)
[2023-06-06] MEDS: diazePAM 5 MG TABLET PO PRN ×2 (10:07→22:15)
[2023-06-06] MEDS: PRENATAL VITAMINS W/ FOLIC ACID TABLET (FP) PO SCH (10:07)
[2023-06-06] MEDS: LISINOPRIL 20 MG TABLET PO SCH (10:08)
[2023-06-06] MEDS: ACETAMINOPHEN 325 MG TABLET (FP) PO PRN (10:08)
[2023-06-06 11:51] LABS: POTASSIUM 4.9 mmol/L (3.5-5.1)
[2023-06-06 11:59] LABS: CALCIUM 10.6 mg/dL (8.5-10.1)
[2023-06-06 12:00] LABS: ALBUMIN 3.4 g/dl (3.4-5.0); BLOOD UREA NITROGEN 17.2 mg/dL (7-18)
[2023-06-06 12:03] LABS: BILIRUBIN,TOTAL 0.3 mg/dL (0.2-1); TOT PROT 6.9 g/dl (6.4-8.2)
[2023-06-06] MEDS: METHOCARBAMOL 500 MG TABLET PO PRN ×2 (14:58→22:15)
[2023-06-06 17:43] VITALS: RESP 18
[2023-06-06] MEDS: THIAMINE HCL 100 MG TABLET (FP) PO SCH (22:16)
[2023-06-06] MEDS: MELATONIN 5 MG TABLETS PO SCH (22:16)
[2023-06-07] MEDS: diazePAM 5 MG TABLET PO PRN (10:06)
[2023-06-07] MEDS: PRENATAL VITAMINS W/ FOLIC ACID TABLET (FP) PO SCH (10:06)
[2023-06-07] MEDS: METHOCARBAMOL 500 MG TABLET PO PRN (10:07)
[2023-06-07] MEDS: ACETAMINOPHEN 325 MG TABLET (FP) PO PRN (10:08)
[2023-06-07] MEDS: amLODIPine BESYLATE 10 MG TABLET (FP) PO SCH (10:11)
[2023-06-07] MEDS: LISINOPRIL 20 MG TABLET PO SCH (10:11)
[2023-06-07 13:06] VITALS: BP 147/74; PULSE 68; TEMP 95.7
[2023-06-08] MEDS ORDERED: methaDONE HCL 10 MG TABLET (FOR DETOX USE ONLY) PO ONE (10:00)
== END 2023-06-07 12:33 | disposition left against medical advice (07) | DRG 894 ==
LOC: YASAS 10:27 → Y3N 11:42
PROVIDERS: ADMIT Allergy & Immunology; ATTEND Surgery
PROC: HZ2ZZZZ Detoxification Services for Substance Abuse Treatment (ICD-10-PCS; principal; 2023-06-04)
DX: F11.23 Opioid dependence with withdrawal (principal); I10 Essential (primary) hypertension; J45.909 Unspecified asthma, uncomplicated; E83.52 Hypercalcemia; M54.50 Low back pain, unspecified; G89.29 Other chronic pain; R73.9 Hyperglycemia, unspecified; Z59.00 Homelessness unspecified; Z56.0 Unemployment, unspecified
CPT/HCPCS: 36415; 80053; 82310; 83036; 85027; 86780; 87635; 87811; 93005; 93010

== ENCOUNTER 2024-08-09 10:54 | Inpatient (IN) | payer OTHER ==
[2024-08-09 11:26] VITALS: BMI 28.6
[2024-08-09] MEDS ORDERED: NALOXONE (NARCAN) HCL 4 MG/0.1 ML SPRAY NS PRN (12:45)
[2024-08-09] MEDS ORDERED: BISMUTH SUBSALICYLATE 524 MG/30 ML PO PRN (12:45)
[2024-08-09] MEDS ORDERED: ONDANSETRON *ODT* 4 MG TABLET SL PRN (12:45)
[2024-08-09] MEDS ORDERED: BENZONATATE 200 MG CAPSULE PO PRN (12:45)
[2024-08-09] MEDS ORDERED: MAGNESIUM HYDROX 2400MG/30ML ORAL SUSPENSION 30 ML CUP PO PRN (12:45)
[2024-08-09] MEDS ORDERED: NALOXONE HCL 0.4 MG/ML VIAL IM PRN (12:45)
[2024-08-09] MEDS ORDERED: IBUPROFEN 600 MG TABLET (FP) PO PRN (12:45)
[2024-08-09] MEDS ORDERED: MAG HYDROX/AL HYDROX/SIMETH 30 ML UNIT-DOSE CUP PO PRN (12:45)
[2024-08-09] MEDS ORDERED: LOPERAMIDE HCL 2 MG CAPSULE PO PRN (12:45)
[2024-08-09] MEDS ORDERED: guaiFENesin 600 MG TABLET.ER (FP) PO PRN (12:45)
[2024-08-09] MEDS ORDERED: IBUPROFEN 400 MG TABLET (FP) PO PRN (12:45)
[2024-08-09] MEDS ORDERED: BENZOCAINE/MENTHOL (CHLORASEPTIC ) LOZENGE MM PRN (12:45)
[2024-08-09] MEDS ORDERED: POLYETHYLENE GLYCOL (HEALTHYLAX) 3350 17 GM PACKET PO PRN (12:45)
[2024-08-09] MEDS ORDERED: methaDONE HCL 10 MG TABLET (FOR DETOX USE ONLY) ONE (13:10)
[2024-08-09] MEDS: methaDONE HCL 10 MG TABLET (FOR DETOX USE ONLY) PO ONE (13:37)
[2024-08-09] MEDS ORDERED: ALBUTEROL SO4 HFA INHALER IH PRN (17:04)
[2024-08-09] MEDS: cloNIDine HCL 0.1 MG TABLET PO PRN (17:31)
[2024-08-09] MEDS: MELATONIN 5 MG TABLETS PO SCH (21:15)
[2024-08-09] MEDS: METHOCARBAMOL 500 MG TABLET PO PRN (21:15)
[2024-08-09] MEDS: THIAMINE 100 MG TABLET PO SCH (21:15)
[2024-08-10] MEDS: amLODIPine BESYLATE 10 MG TABLET (FP) PO SCH (09:52)
[2024-08-10] MEDS: PRENATAL VITAMINS W/ FOLIC ACID TABLET (FP) PO SCH (09:53)
[2024-08-10] MEDS: LISINOPRIL 20 MG TABLET PO SCH (09:54)
[2024-08-10 11:40] LABS: CHLORIDE 106 mmol/L (98-107); POTASSIUM 4.7 mmol/L (3.5-5.1); SODIUM 139 mmol/L (136-145)
[2024-08-10 11:41] LABS: CALCIUM 10.6 mg/dL (8.5-10.1)
[2024-08-10 11:42] LABS: ALBUMIN 3.3 g/dl (3.4-5.0); ANION GAP 7 mmol/L (4-13); BLOOD UREA NITROGEN 14.9 mg/dL (7-18); CO2 26 mmol/L (21-32); GLUCOSE,RANDOM 110 mg/dL (74-106)
[2024-08-10 11:43] LABS: HEMATOCRIT 33.8 % (35.4-49); HEMOGLOBIN 11.3 GM/dL (11.7-16.9); MCH 29.8 pg (25.7-33.7); MCHC 33.4 g/dl (32.0-35.9); MEAN CELL VOLUME 89.1 fl (80-96); PLATELET COUNT 206 10^3/uL (134-434); RBC 3.79 M/mm3 (4.00-5.60); RDW 13.3 % (11.9-15.9); WHITE BLOOD COUNT 5.9 K/mm3 (4.0-10.0)
[2024-08-10 11:44] LABS: SGPT/ALT 24 U/L (13-61)
[2024-08-10 11:45] LABS: CREATININE 1.2 mg/dL (0.55-1.3); SGOT/AST 19 U/L (15-37)
[2024-08-10 11:46] LABS: BILIRUBIN,TOTAL 0.6 mg/dL (0.2-1); TOT PROT 6.8 g/dl (6.4-8.2)
[2024-08-10 11:47] LABS: ALK PHOS 67 U/L (45-117)
[2024-08-11] MEDS: metFORMIN HCL 500 MG TABLET (FP) PO SCH (07:01)
[2024-08-11] MEDS: methaDONE HCL 10 MG TABLET (FOR DETOX USE ONLY) PO ONE (10:21)
[2024-08-11] MEDS: MELATONIN 5 MG TABLETS PO SCH (23:27)
[2024-08-12] MEDS: ACETAMINOPHEN 325 MG TABLET (FP) PO PRN (10:07)
[2024-08-13] MEDS: methaDONE HCL 10 MG TABLET (FOR DETOX USE ONLY) PO ONE (09:34)
[2024-08-13 23:07] LABS: PARATHYROID HORM INTACT 117 pg/mL (15-65)
[2024-08-14 09:33] VITALS: BP 120/69; PULSE 73; RESP 18; TEMP 97.6
== END 2024-08-14 09:40 | disposition home or self-care (01) | DRG 897 ==
LOC: YASAS 10:54 → Y6N 12:29
PROVIDERS: ADMIT Allergy & Immunology; ATTEND Surgery
PROC: HZ2ZZZZ Detoxification Services for Substance Abuse Treatment (ICD-10-PCS; principal; 2024-08-09)
DX: F11.23 Opioid dependence with withdrawal (principal); F14.20 Cocaine dependence, uncomplicated; F19.282 Other psychoactive substance dependence with psychoactive substance-induced sleep disorder; F10.20 Alcohol dependence, uncomplicated; F32.A Depression, unspecified; F41.9 Anxiety disorder, unspecified; I10 Essential (primary) hypertension; E83.52 Hypercalcemia; E11.319 Type 2 diabetes mellitus with unspecified diabetic retinopathy without macular edema; Z79.84 Long term (current) use of oral hypoglycemic drugs; K21.9 Gastro-esophageal reflux disease without esophagitis; M54.50 Low back pain, unspecified; G89.29 Other chronic pain
CPT/HCPCS: 36415; 80053; 80305; 80307; 82306; 82310; 82962; 83970; 85027; 86780; 93005; 93010

== ENCOUNTER 2024-12-02 12:40 | Inpatient (IN) | payer OTHER ==
[2024-12-02] MEDS ORDERED: METHOCARBAMOL 500 MG TABLET PO PRN (13:41)
[2024-12-02] MEDS ORDERED: IBUPROFEN 400 MG TABLET (FP) PO PRN (13:41)
[2024-12-02] MEDS ORDERED: methaDONE HCL 10 MG TABLET (FOR DETOX USE ONLY) PO PRN (13:41)
[2024-12-02] MEDS ORDERED: BENZOCAINE/MENTHOL (CHLORASEPTIC ) LOZENGE MM PRN (13:41)
[2024-12-02] MEDS ORDERED: hydrOXYzine PAMOATE 25 MG CAPSULE (FP) PO PRN (13:41)
[2024-12-02] MEDS ORDERED: BENZONATATE 200 MG CAPSULE PO PRN (13:41)
[2024-12-02] MEDS ORDERED: BISMUTH SUBSALICYLATE 262 MG/15 ML BTL PO PRN (13:41)
[2024-12-02] MEDS ORDERED: MAG HYDROX/AL HYDROX/SIMETH 30 ML UNIT-DOSE CUP PO PRN (13:41)
[2024-12-02] MEDS ORDERED: NALOXONE (NARCAN) HCL 4 MG/0.1 ML SPRAY NS PRN (13:41)
[2024-12-02] MEDS ORDERED: LOPERAMIDE HCL 2 MG CAPSULE PO PRN (13:41)
[2024-12-02] MEDS ORDERED: DICYCLOMINE HCL 10 MG CAPSULE PO PRN (13:41)
[2024-12-02] MEDS ORDERED: IBUPROFEN 600 MG TABLET (FP) PO PRN (13:41)
[2024-12-02] MEDS ORDERED: ONDANSETRON *ODT* 4 MG TABLET SL PRN (13:41)
[2024-12-02] MEDS ORDERED: guaiFENesin 600 MG TABLET.ER (FP) PO PRN (13:41)
[2024-12-02 13:44] VITALS: BMI 30.9
[2024-12-02] MEDS ORDERED: methaDONE HCL 10 MG TABLET (FOR DETOX USE ONLY) ONE (14:44)
[2024-12-02] MEDS ORDERED: BUPRENORPHINE/NALOXONE 0.5 MG/0.125 MG FILM ONE (14:45)
[2024-12-02] MEDS ORDERED: cloNIDine HCL 0.1 MG TABLET ONE (14:45)
[2024-12-02] MEDS ORDERED: amLODIPine BESYLATE 5 MG TABLET (FP) ONE (14:45)
[2024-12-02] MEDS ORDERED: PRENATAL VITAMINS W/ FOLIC ACID TABLET (FP) PO ONE (14:46)
[2024-12-02] MEDS: cloNIDine HCL 0.1 MG TABLET PO SCH (14:50)
[2024-12-02] MEDS: PRENATAL VITAMINS W/ FOLIC ACID TABLET (FP) PO SCH (14:50)
[2024-12-02] MEDS: amLODIPine BESYLATE 10 MG TABLET (FP) PO SCH (14:51)
[2024-12-02] MEDS: methaDONE HCL 10 MG TABLET (FOR DETOX USE ONLY) PO ONE (14:52)
[2024-12-02] MEDS: BUPRENORPHINE/NALOXONE 0.5 MG/0.125 MG FILM SL ONE ×2 (14:53→22:37)
[2024-12-02] MEDS: MELATONIN 5 MG TABLETS PO SCH (21:56)
[2024-12-02] MEDS: CYCLOBENZAPRINE HCL 10 MG TABLET (FP) PO SCH (21:56)
[2024-12-02] MEDS: THIAMINE 100 MG TABLET PO SCH (21:56)
[2024-12-02] MEDS: GABAPENTIN 300 MG CAPSULE PO SCH (21:56)
[2024-12-03] MEDS: ACETAMINOPHEN 325 MG TABLET (FP) PO PRN (05:48)
[2024-12-03] MEDS: metFORMIN HCL 500 MG TABLET (FP) PO SCH (06:26)
[2024-12-03] MEDS: LISINOPRIL 20 MG TABLET PO SCH (10:11)
[2024-12-03] MEDS: BUPRENORPHINE/NALOXONE 0.5 MG/0.125 MG FILM SL SCH (10:13)
[2024-12-03 10:52] LABS: HEMATOCRIT 34.1 % (35.4-49); HEMOGLOBIN 10.9 GM/dL (11.7-16.9); MCH 29.6 pg (25.7-33.7); MCHC 32.1 g/dl (32.0-35.9); MEAN CELL VOLUME 92.2 fl (80-96); MEAN PLT VOLUME 8.8 fl (7.5-11.1); PLATELET COUNT 166 10^3/uL (134-434); RDW 15.7 % (11.9-15.9); WHITE BLOOD COUNT 5.5 K/mm3 (4.0-10.0)
[2024-12-03 10:57] LABS: POTASSIUM 3.4 mmol/L (3.5-5.1)
[2024-12-03 11:01] LABS: ALBUMIN 3.4 g/dl (3.4-5.0); BLOOD UREA NITROGEN 17.4 mg/dL (7-18); CALCIUM 9.4 mg/dL (8.5-10.1)
[2024-12-03 11:04] LABS: CREATININE 1.2 mg/dL (0.55-1.3)
[2024-12-03 11:05] LABS: BILIRUBIN,TOTAL 0.6 mg/dL (0.2-1)
[2024-12-03 11:06] LABS: TOT PROT 6.6 g/dl (6.4-8.2)
[2024-12-03] MEDS: POTASSIUM CHLORIDE ORAL LIQUID 20 MEQ/15 ML PO ONE (12:09)
[2024-12-03] MEDS: ALBUTEROL SO4 HFA INHALER IH PRN (14:49)
[2024-12-03] MEDS: SUVOREXANT 5 MG TABLET PO PRN (22:22)
[2024-12-04] MEDS: BUPRENORPHINE/NALOXONE 2 MG/0.5 MG FILM PACKET SL SCH (09:56)
[2024-12-04] MEDS: POLYETHYLENE GLYCOL (HEALTHYLAX) 3350 17 GM PACKET PO PRN (10:00)
[2024-12-04] MEDS: methaDONE HCL 10 MG TABLET (FOR DETOX USE ONLY) PO ONE (10:00)
[2024-12-04 17:04] LABS: POTASSIUM 4.1 mmol/L (3.5-5.1)
[2024-12-04 17:09] LABS: BLOOD UREA NITROGEN 10.9 mg/dL (7-18)
[2024-12-05] MEDS: BUPRENORPHINE/NALOXONE 4 MG/1 MG FILM PACKET SL SCH (10:41)
[2024-12-05] MEDS: MAGNESIUM HYDROX 2400MG/30ML ORAL SUSPENSION 30 ML CUP PO PRN (13:51)
[2024-12-06] MEDS: methaDONE HCL 10 MG TABLET (FOR DETOX USE ONLY) PO ONE (10:16)
[2024-12-06] MEDS: BUPRENORPHINE/NALOXONE 8 MG/2 MG FILM PACKET SL SCH (10:17)
[2024-12-06] MEDS: LISINOPRIL 20 MG TABLET PO ONE ×2 (12:55→16:34)
[2024-12-07 06:21] VITALS: BP 134/73; PULSE 86; RESP 17; TEMP 97.6
[2024-12-07] MEDS: BUPRENORPHINE/NALOXONE 8 MG/2 MG FILM PACKET SL SCH (09:48)
[2024-12-07] MEDS: LISINOPRIL 20 MG TABLET PO ONE (09:48)
[2024-12-07] MEDS: NALOXONE (NYS OPIOID OVERDOSE PROGRAM) 4 MG/0.1 ML SPRAY NS SCH (10:04)
== END 2024-12-07 10:08 | disposition home or self-care (01) | DRG 897 ==
LOC: YASAS 12:40 → Y3N 14:15
PROVIDERS: ADMIT Allergy & Immunology; ATTEND Allergy & Immunology
PROC: HZ2ZZZZ Detoxification Services for Substance Abuse Treatment (ICD-10-PCS; principal; 2024-12-02)
DX: F11.23 Opioid dependence with withdrawal (principal); F14.20 Cocaine dependence, uncomplicated; E87.6 Hypokalemia; G47.00 Insomnia, unspecified; I10 Essential (primary) hypertension; J45.909 Unspecified asthma, uncomplicated; K21.9 Gastro-esophageal reflux disease without esophagitis; E11.9 Type 2 diabetes mellitus without complications; Z79.84 Long term (current) use of oral hypoglycemic drugs; M54.50 Low back pain, unspecified; G89.29 Other chronic pain
CPT/HCPCS: 36415; 80048; 80053; 80305; 80307; 82962; 85027; 86780; 93005; 93010